=== PATIENT | male | born 1950 | race Caucasian/White ===

== ENCOUNTER → 2022-06-14 10:00 | Outpatient (CLI) | payer MEDICARE, OTHER, SELFPAY ==
--- NOTE | 2022-06-14 10:12 | DI.CT.S_ITS ---
PROCEDURE: CT IVP A/P W/WO INDICATIONS: Other microscopic hematuria TECHNIQUE: Optional 5 mm thick noncontrast images acquired from the diaphragm to the symphysis pubis. After the administration of intravenous contrast, 5 mm thick images acquired from the diaphragm to the symphysis pubis after a 10-minute delay. 2 mm thick coronal and sagittal reformats were then performed of the kidneys and ureters. For radiation dose reduction, the following was used: automated exposure control, adjustment of mA and/or kV according to patient size. COMPARISON: Merged With [facility], CT, CT KUB, 06/02/2022, 10:12. FINDINGS: Image quality: Excellent. Lung bases: Lung bases are clear. Heart size is normal. Small hiatal hernia. Urinary system: Both kidneys are normal in size, without hydronephrosis or nephrolithiasis on pre-contrast images. No perinephric fat stranding. There is normal bilateral renal enhancement. Small simple left renal cyst. Renal calyces appear normal in morphology when filled with contrast. Opacified portions of both ureters demonstrate normal caliber. No ureteral filling defect. The most distal right ureter does not opacify with contrast. Right posterior bladder wall in the region of the right ureteral orifice subtle increased density on the noncontrast images. On the post-contrast images there is an irregular frondlike appearance, (3/182). This measures approximately 3.3 cm in width. There is an adjacent bladder diverticulum which opacifies with contrast. No bladder stone. Other solid organs: Liver is normal in size and enhancement. Small hepatic cysts. Gallbladder is unremarkable. Biliary system is non dilated. Pancreas enhances normally. Spleen is normal in size and enhancement. No adrenal nodules. Peritoneum and bowel: Bowel loops demonstrate normal wall thickness and caliber. Diverticulosis. Normal appendix. No free fluid or air. Nodes and vessels: No retroperitoneal or mesenteric adenopathy by size criteria. Hazy mid abdomen mesentery is unchanged. Aorta and inferior vena cava are normal in size. Abdominal wall: No ventral hernias. Pelvis: No pathologic free pelvic fluid. Questionable fat containing right inguinal hernia. Right pelvic sidewall lymph node measuring 0.9 cm, (3/172). Prostatomegaly. Bones: No suspicious bony lesions. No vertebral body compression fractures. IMPRESSION: 1. Right bladder mass in the region of the right ureteral orifice. This is most likely due to urothelial cell carcinoma. Recommend cystoscopy for further evaluation. 2. Small right pelvic sidewall node measuring 0.9 cm. 3. No upper urinary tract filling defect. No hydronephrosis. No kidney stones. No solid renal mass. Dictated by: Rupesh Cummings M.D. on 06/14/2022 at 11:45 Approved by: Rupesh Cummings M.D. on 06/14/2022 at 12:02
[2022-06-14 10:49] LABS: BUN Creatinine Ratio 19.2 (6-22); Blood Urea Nitrogen 25 mg/dL (9-20); Estimated Glomerular Filt Rate 59 mL/min (>60)
== END ==
PROVIDERS: PCP Family Medicine; Referring Provider Urology; Visit Provider Urology
DX: N32.9 Bladder disorder, unspecified (principal); R31.29 Other microscopic hematuria; K76.89 Other specified diseases of liver; K44.9 Diaphragmatic hernia without obstruction or gangrene; N20.0 Calculus of kidney; N40.0 Benign prostatic hyperplasia without lower urinary tract symptoms
CPT/HCPCS: 36415; 74178; 82565; 84520; Q9967

== ENCOUNTER 2022-07-24 03:09 | Emergency (ER) | payer MEDICARE, OTHER, SELFPAY ==
--- NOTE | 2022-07-24 03:10 | ED_ITS ---
HPI - General Adult General Chief complaint: Urogenital-Male Stated complaint: bladder cramps, can't urinate, had surg saturday Time Seen by Provider: 07/24/22 03:09 History of Present Illness HPI narrative: 72-year-old nonsmoker with history of recent bladder procedure presents with his in the chief complaint severe lower abdominal pain and bladder spasms. He states that on Saturday he had resection of bladder masses at [facility] and had a Ponce catheter in until 930 yesterday morning. He had it removed without difficulty was observed for 4 hours and able to urinate without trouble. Over the course of the day he had a slowing of urine output and states he last urinated about 5 hours ago. He presents with severe pain at baseline with episodes of unprovoked spasm. He denies fever or chills. He is had no nausea or vomiting. He denies dysuria or hematuria. Related Data Previous Rx's Medication Instructions Recorded oxybutynin chloride 10 mg 10 mg PO DAILY #20 tabs 07/24/22 tablet,extended release 24 hr Allergies Allergy/AdvReac Type Severity Reaction Status Date / Time No Known Drug Allergies Allergy Verified 07/24/22 03:49 Review of Systems Review of Systems Narrative: GENERAL: Denies chills, fatigue, malaise, fever, sweats. HEENT: Denies sinus pain, ear pain, sore throat, difficulty swallowing, dizziness. RESPIRATORY: Denies dyspnea, cough, wheezing, hemoptysis, sputum. CARDIOVASCULAR: Denies chest pain, palpitations, orthopnea, edema, GASTROINTESTINAL: Denies nausea, vomiting, abdominal pain, diarrhea, constipation, melena. : See HPI MUSCULOSKELETAL: denies weakness, joint pain, or bony pain SKIN: Denies rash, skin lesions, or other NEUROLOGIC: Denies weakness, headache, numbness, change in speech, confusion, seizures, incoordination. PSYCHIATRIC: No concerning psychosocial issues. 12 point review of systems is negative except for those stated above Patient History Social History Smoking Status: Never smoker Exam Narrative Exam Narrative: GENERAL: [72] year old patient appears stated age. Well-developed patient, in severe distress. HEAD: Atraumatic. Normocephalic. EYES: Pupils equal round and reactive. Extraocular motions intact. No scleral icterus. No injection or drainage. ENT: Nose without bleeding, purulent drainage. Throat without erythema, tonsillar hypertrophy or exudate. Airway patent. NECK: Trachea midline. Non tender CARDIOVASCULAR: Regular rate and rhythm without murmurs, gallops, or rubs. RESPIRATORY: Clear to auscultation. Breath sounds equal bilaterally. No wheezes, rales, or rhonchi. GASTROINTESTINAL: Abdomen firm in the suprapubic region, bedside point of care ultrasound demonstrates significantly enlarged bladder EXTREMITIES: No edema or joint tenderness. BACK: Nontender without deformity or crepitance. No flank tenderness. NEURO: AOx3. SKIN: No rash or erythema of visible areas Initial Vital Signs Initial Vital Signs: Vital Signs Temperature 98.4 F 07/24/22 03:21 Pulse Rate 71 07/24/22 03:21 Respiratory Rate 22 07/24/22 03:21 Blood Pressure 221/91 H 07/24/22 03:21 Pulse Oximetry 100 07/24/22 03:21 Oxygen Delivery Method 07/24/22 03:21 Course Course Course Narrative: patient with near complete and immediate resolution of symptoms after placement of ponce by nursing Orders Ordered: ED Orders 07/24/22 03:38 Urine Culture Stat Urine Microscopic Stat 07/24/22 03:46 Urine Culture Stat Discontinued Medications Belladonna Alkaloids/Opium (Belladonna/Opium Suppositories) 1 each TX NOW ONE Stop: 07/24/22 03:29 Last Admin: 07/24/22 04:14 Dose: Not Given Lidocaine HCl (Lidocaine 2% (Glydo) 6 Ml Gel) 6 ml TOP NOW ONE Stop: 07/24/22 03:20 Last Admin: 07/24/22 04:13 Dose: 6 ml Consultations Consultation #1: discussed with consulting sales executive urology at [facility], recommends leaving ponce in place, adding oxybutinin, doubling flomax and close follow up Vital Signs Vital signs: Vital Signs - 8 hr 07/24/22 03:21 Temperature 98.4 F Pulse Rate 71 Respiratory Rate 22 Blood Pressure 221/91 H Pulse Oximetry 100 Oxygen Delivery Method Room Air Medical Decision Making Lab Data Labs: Lab Results 07/24/22 Range/Units 03:38 Urine RBC 30-100/hpf H (0-5/HPF) Urine WBC 1-5/hpf (0-5/HPF) Urine Bacteria None seen (None) Ur Culture Indicated? Specimen cultured Urine Dip Bedside Urine Glucose Negative Bedside Urine Bilirubin - Negative Bedside Urine Ketone - Negative Urine Specific [place] 1.015 Bedside Urine Occult Blood +++ Bedside Urine pH 6.5 Bedside Urine Protein + 30 Bedside Urine Urobilinogen +/- 1mg Bedside Urine Nitrite + Positive Bedside Urine Leukocytes +/- 15 Esterase Point of care testing: Urine Dip Bedside Urine Glucose Negative Bedside Urine Bilirubin - Negative Bedside Urine Ketone - Negative Urine Specific [place] 1.015 Bedside Urine Occult Blood +++ Bedside Urine pH 6.5 Bedside Urine Protein + 30 Bedside Urine Urobilinogen +/- 1mg Bedside Urine Nitrite + Positive Bedside Urine Leukocytes +/- 15 Esterase MDM Narrative Medical decision making narrative: [72M presents with his and inability to urinate after recent urologic procedure] Multiple etiologies for patient's symptoms considered including, but not limited to: [urinary retention vs. other] Prior Charts reviewed:non available Labs reviewed and interpreted by myself:no sign of UTI Imaging reviewed: bedside POC bladder scan notes full bladder after attempt to void Consultations: discussed with urology at [facility] Patient's symptoms improved over duration of stay with above-stated therapies. Findings and discharge diagnosis discussed with patient/family followed by verbalization of understanding Return precautions discussed with patient/family whom verbalize understanding of diagnosis and plan Discharge Plan Departure Patient Disposition: Home Clinical Impression: Acute retention of urine Instructions: DI for Urinary Retention in Men Activity Restrictions/Additional Instructions: *You have been diagnosed with [acute urinary retention ] *What to do: *Please increase your Tamsulosin (Flomax) to twice daily until you follow up with urology. Otherwise, please continue to take your regular medications as directed. [x ] New medication prescriptions sent to your pharmacy: [[facility] in [place] ] [ ] New medication written as a paper prescription [ ] No new medications given *Please follow up with your urologist in 2-3 days, call for an appointment. Let them know you were seen in the Emergency Department and that we ask that you be seen in follow up. We will electronically transmit a record of today's note *Return to Emergency Department if you should have any new, worsening or concerning symptoms, such as [fever greater than 101 F, shaking chills, worsening pain, persistent vomiting or other bothersome symptoms] Prescriptions: New oxybutynin chloride 10 mg tablet extended release 24hr 10 mg PO DAILY Qty: 20 0RF Referrals: Guero Saldivar MD [Primary Care Provider] - Sameer Crump DO [Non-Staff] - Stand Alone Forms: Patient Portal/API
[2022-07-24 03:21] VITALS: BP 221/91; PULSE 71; RESP 22; TEMP 36.9; O2SAT 100; BMI 25.0
[2022-07-24 04:08] LABS: Bacteria Urine None Seen; Culture Indicated Urine Specimen Cultured; RBC Urine 30-100/HPF (0-5/HPF); WBC Urine 1-5/HPF (0-5/HPF)
[2022-07-24] MEDS: LIDOCAINE 2% (GLYDO) 6 ML GEL TOP (04:13)
[2022-07-24 04:55] VITALS: BP 175/74; PULSE 53; RESP 18; O2SAT 98
== END 2022-07-24 04:56 | disposition home or self-care (01) ==
PROVIDERS: Emergency Provider Emergency Medicine; PCP Family Medicine
DX: R33.8 Other retention of urine (principal)
CPT/HCPCS: 81003; 81015; 87086; 99282

== ENCOUNTER → 2022-08-06 14:47 | Outpatient (CLI) | payer MEDICARE, OTHER, SELFPAY ==
--- NOTE | 2022-08-06 | DI.CT.S_ITS ---
PROCEDURE: CT CHEST WO CON INDICATIONS: BLADDER CANCER TECHNIQUE: Noncontrast 5 mm thick sections acquired from the pulmonary apices to the posterior costophrenic angles. 1 mm lung window, 5 mm thick coronal and sagittal and 7 mm axial MIP reformats were then acquired. For radiation dose reduction, the following was used: automated exposure control, adjustment of mA and/or kV according to patient size. COMPARISON: [facility], CT, CT IVP A/P W/WO, 06/14/2022, 10:19. FINDINGS: Image quality: Adequate Lungs and pleura: No consolidation or pleural effusion. 2 millimeter nodule at the left lung apex (3/66). Mediastinum: No pericardial effusion. Thoracic aorta and central pulmonary arteries are normal in size. Esophagus is normal in caliber. Multivessel coronary artery calcifications and/or stents. Bones and chest wall: Multilevel degenerative change of the visualized spine. No axillary or supraclavicular adenopathy by size criteria. Abdomen: Few small nonspecific hepatic hypodensities redemonstrated better visualized on the prior contrast enhanced examination. Visualized upper abdominal solid organs and bowel loops appear unremarkable in the absence of contrast. IMPRESSION: 1. A 2 millimeter nodule is present at the left lung apex, nonspecific. Attention to this finding on future follow up exams is recommended. 2. Otherwise, no definite findings suspicious for metastatic disease identified within the chest on this noncontrast exam. Dictated by: Kevin Camarillo M.D. on 08/07/2022 at 11:21 Approved by: Kevin Camarillo M.D. on 08/07/2022 at 11:33
== END ==
PROVIDERS: PCP Family Medicine; Referring Provider Urology; Visit Provider Urology
DX: N32.89 Other specified disorders of bladder (principal); R91.1 Solitary pulmonary nodule
CPT/HCPCS: 71250

== ENCOUNTER → 2022-09-05 14:49 | Outpatient (CLI) | payer MEDICARE, OTHER, SELFPAY ==
--- NOTE | 2022-09-05 | DI.CT.S_ITS ---
PROCEDURE: CT IVP A/P W/WO INDICATIONS: Malignant neoplasm of bladder TECHNIQUE: Optional 5 mm thick noncontrast images acquired from the diaphragm to the symphysis pubis. After the administration of intravenous contrast, 5 mm thick images acquired from the diaphragm to the symphysis pubis after a 10-minute delay. 2 mm thick coronal and sagittal reformats were then performed of the kidneys and ureters. For radiation dose reduction, the following was used: automated exposure control, adjustment of mA and/or kV according to patient size. COMPARISON: [facility], CT, CT IVP A/P W/WO, 06/14/2022, 10:19. FINDINGS: Image quality: Excellent. Lung bases: Lung bases are clear. Heart size is normal. Urinary system: Both kidneys are normal in size, without hydronephrosis. Question punctate nonobstructing left kidney stone. No perinephric fat stranding. There is normal bilateral renal enhancement. Renal calyces appear normal in morphology when filled with contrast. Opacified portions of both ureters demonstrate normal caliber. Near complete opacification. No calcified bladder stones. Thickening at the right bladder wall. Concern for slight worsening particularly at the superior margin, (5/44), although this could be related to differences and bladder distension. Right bladder diverticulum. Other solid organs: Liver is normal in size and enhancement. A few small cysts are unchanged. Gallbladder is decompressed. Biliary system is non dilated. Pancreas enhances normally. Spleen is normal in size and enhancement. Calcified splenic granuloma. No adrenal nodules. Peritoneum and bowel: Bowel loops demonstrate normal wall thickness and caliber. A few colonic diverticuli. Normal appendix. No free fluid or air. Nodes and vessels: No retroperitoneal or mesenteric adenopathy by size criteria. Sadaf mesentery is unchanged. Aorta and inferior vena cava are normal in size. Abdominal wall: No ventral hernias. Pelvis: Prostatomegaly. No pathologic free pelvic fluid. No inguinal hernias. Right pelvic sidewall node measuring 1.7 cm, (3/178), previously 0.9 cm. Bones: No suspicious bony lesions. No vertebral body compression fractures. IMPRESSION: 1. Bladder wall thickening is slightly worsened. Concern for enlarging bladder cancer. 2. Right pelvic sidewall lymph node is increased in size. 3. No new metastatic disease identified. No solid renal mass. No upper urinary tract filling defect. Dictated by: Rupesh Cummings M.D. on 09/05/2022 at 17:18 Approved by: Rupesh Cummings M.D. on 09/05/2022 at 17:28
[2022-09-05 15:42] LABS: Estimated Glomerular Filt Rate > 60 mL/min (>60)
== END ==
PROVIDERS: Radiology Diagnostic Radiology; PCP Family Medicine; Referring Provider Urology; Visit Provider Urology
DX: C67.9 Malignant neoplasm of bladder, unspecified (principal)
CPT/HCPCS: 36415; 74178; 82565; Q9967

== ENCOUNTER → 2022-10-16 10:08 | Outpatient (CLI) | payer MEDICARE, OTHER, SELFPAY ==
--- NOTE | 2022-10-16 | DI.US.S_ITS ---
PROCEDURE: US SOFT TISSUE HEAD AND NECK INDICATIONS: Disorder of the skin and subcutaneous tissue TECHNIQUE: Real-time scanning was performed of the neck region of interest, with image documentation. COMPARISON: None. FINDINGS: No mass or fluid collection at the area of interest. IMPRESSION: No sonographically evident mass or fluid collection at the area of interest. Clinical followup is recommended. If there is new or worsening clinical concern, reimaging with ultrasound or CT could be obtained. Dictated by: Patrick Rios M.D. on 10/16/2022 at 11:56 Approved by: Patrick Rios M.D. on 10/16/2022 at 11:57
== END ==
PROVIDERS: PCP Family Medicine; Referring Provider Nurse Practitioner Family; Visit Provider Nurse Practitioner Family
DX: L98.9 Disorder of the skin and subcutaneous tissue, unspecified (principal)
CPT/HCPCS: 76536

== ENCOUNTER → 2023-02-18 11:16 | Outpatient (CLI) | payer MEDICARE, OTHER, SELFPAY ==
--- NOTE | 2023-02-18 | DI.US.S_ITS ---
PROCEDURE: US RENAL COMPLETE INDICATIONS: MALIGNANT NEOSPLASM OF BLADDER, UNSPECIFIED TECHNIQUE: Real-time scanning was performed of the kidneys and bladder, with image documentation. COMPARISON: None. FINDINGS: Kidneys: Kidneys are normal in size. Right kidney measures 10.3 cm long; left kidney measures 11.3 cm long. Right renal cortical thickness is 1.8 cm; left renal cortical thickness is 2.0 cm. Renal cortical echotexture is normal. No hydronephrosis or nephrolithiasis. No suspicious solid mass lesions. There is a simple 2.1 cm left renal cyst. Bladder: The bladder is surgically absent. Miscellaneous: No free pelvic fluid. IMPRESSION: 1. No hydronephrosis. Left renal cyst. Dictated by: Dimple Jarrell M.D. on 02/18/2023 at 17:00 Approved by: Dimple Jarrell M.D. on 02/18/2023 at 17:01
== END ==
PROVIDERS: PCP Family Medicine; Referring Provider Nurse Practitioner Adult Health; Visit Provider Nurse Practitioner Adult Health
DX: C67.9 Malignant neoplasm of bladder, unspecified (principal); N28.1 Cyst of kidney, acquired
CPT/HCPCS: 76770

== ENCOUNTER → 2023-04-03 11:18 | Outpatient (CLI) | payer MEDICARE, OTHER, SELFPAY ==
[2023-04-03 12:20] LABS: Estimated Glomerular Filt Rate 54 mL/min (>60)
--- NOTE | 2023-04-03 12:55 | DI.CT.S_ITS ---
PROCEDURE: CT CHEST ABD PEL W CON INDICATIONS: Malignant neoplasm of bladder, unspecified TECHNIQUE: After the administration of oral and intravenous contrast, axial sections acquired from the supraclavicular neck to the pubic symphysis. Coronal and sagittal reformats were performed. For radiation dose reduction, the following was used: automated exposure control, adjustment of mA and/or kV according to patient size. COMPARISON: [facility], CT, CT IVP A/P W/WO, 09/05/2022, 15:46. [facility], CT, CT CHEST WO CON, 08/06/2022, 15:01. FINDINGS: Image quality: Good Lungs and pleura: Scattered scarring. No consolidation or pleural effusion. No new or enlarging pulmonary nodule. Mediastinum, heart, and esophagus: There is nonspecific mild esophageal wall thickening, also seen previously. Heart size is within normal limits. A right port catheter terminates in the lower SVC. There are coronary and annular calcifications of the heart. No pathologic lymph nodes in the mediastinum or gina by size criteria. Chest wall and thyroid: Unremarkable Solid organs: There are liver cysts. Subcentimeter lesions are too small to characterize, probably also cysts, as they are stable. Gallbladder is unremarkable. No pathologic dilation of the biliary system or pancreatic duct. Prominent size spleen measuring 12 13 cm. No adrenal nodules. Left renal cyst is present. Right lower quadrant urinary diversion with a small parastomal hernia. Mild bilateral pelviectasis. Vessels and lymph nodes: The main portal vein is patent. No abdominal aortic aneurysm. There are pelvic dissection clips. Previously noted right external iliac station node is not seen. Small fluid collections are seen at the pelvic sidewalls, probably postoperative seroma/lymphoceles. Bowel and peritoneum: Mildly distended stomach. No evidence of small bowel obstruction. 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 Moderate to large fecal loading. Body wall: Small fat containing left inguinal hernia. Abdominal wall postsurgical changes. Tiny midline fat containing ventral hernia also present. Pelvis: Cystectomy. Prostatectomy. Mild edema is seen in the pelvis at the surgical sites. No discrete enhancing nodule is identified. Bones: Degenerative changes, no acute or suspicious finding. IMPRESSION: Postoperative changes of cystectomy, prostatectomy, and pelvic node dissection. Suspected pelvic postoperative edema and pelvic sidewall seroma/lymphoceles. No definite enhancing nodule. Close attention on follow-up is suggested. No evidence of distant metastatic disease. Other findings as above. Dictated by: Patrick Rios M.D. on 04/03/2023 at 14:41 Approved by: Patrick Rios M.D. on 04/03/2023 at 14:50
== END ==
PROVIDERS: Radiology Diagnostic Radiology; PCP Family Medicine; Referring Provider Nurse Practitioner Adult Health; Visit Provider Nurse Practitioner Adult Health
DX: C67.9 Malignant neoplasm of bladder, unspecified (principal); C79.11 Secondary malignant neoplasm of bladder; Z90.6 Acquired absence of other parts of urinary tract; N41.2 Abscess of prostate
CPT/HCPCS: 36415; 71260; 74177; 82565

== ENCOUNTER → 2023-06-28 08:54 | Outpatient (CLI) | payer MEDICARE, OTHER, SELFPAY ==
[2023-06-28 09:30] LABS: Estimated Glomerular Filt Rate 47 mL/min (>60)
--- NOTE | 2023-06-28 09:52 | DI.CT.S_ITS ---
PROCEDURE: CT CHEST ABD PEL W CON INDICATIONS: Malignant neoplasm of bladder, unspecified TECHNIQUE: After the administration of intravenous contrast, 5 mm thick sections acquired from the lung apices to the symphysis. 5 mm coronal and sagittal reformats were performed, with additional 7 mm MIP reformats through the lungs. For radiation dose reduction, the following was used: automated exposure control, adjustment of mA and/or kV according to patient size. COMPARISON: [facility], CT, CT CHEST ABD PEL W CON, 04/03/2023, 12:48. FINDINGS: Image quality: Excellent. CHEST: Lower Neck: No enlarged lymph nodes. Thyroid: Normal CT appearance. Axillae: No enlarged lymph nodes. Chest Wall: Right chest MediPort. Lungs and Pleura: No pneumothorax or pleural effusions. No consolidation or suspicious nodules. Central and peripheral airways are normal without bronchial wall thickening or bronchiectasis. Heart: Heart size at the upper limits of normal. Moderate to heavy coronary artery calcification. Aortic valvular calcification. No pericardial effusion. Thoracic Vessels: The aorta and pulmonary arteries demonstrate normal size. Mediastinum and [place]iana: No enlarged lymph nodes. Esophagus: No wall thickening. No hiatal hernia. ABDOMEN: Liver: Several hepatic hypodensities, likely cysts. The largest measures 1.5 cm, stable. No new solid mass. Gallbladder: Normal. Biliary ducts: No biliary dilation. Pancreas: No ductal dilation. Spleen: Size is within normal limits. Coarse upper pole calcification. Adrenal Glands: No nodules. Kidneys and Ureters: Symmetric enhancement. Punctate nonobstructing left lower pole calcification. No hydronephrosis. No hydroureter or ureteral calcifications. Right lower quadrant ureteral anastomosis into an ileal conduit. Upper pole left renal cyst. Stomach and Bowel: There is a right lower quadrant small bowel anastomosis following creation of right lower quadrant ureterostomy with ileal loop. There is a normal appendix and normal loops of colon containing mildly increased quantity of stool. Mild moderate length segment wall thickening of the proximal descending colon without surrounding inflammatory changes, nonspecific. Peritoneum: No abnormal intraperitoneal fluid. No free air. Ventral Wall: No hernia. Right lower quadrant urostomy. Abdominal Nodes: No retroperitoneal or mesenteric adenopathy by size criteria. Vessels: Aorta and inferior vena cava are normal in size. Mild abdominal aortic atherosclerotic calcification. PELVIS: Pelvic Organs: The prostate gland is surgically absent. Bladder: Surgically absent. Pelvic Nodes: No enlarged lymph nodes. Miscellaneous: Several surgical clips present in the pelvis. Interval resolution previously seen small pelvic sidewall fluid collections with trace residual fascial thickening more evident on the left than right. No suspicious soft tissue nodule. Bones: No suspicious bone lesions. Degenerative disc disease in the low lumbar spine. IMPRESSION: 1. Prior prostatectomy, cystectomy, and urinary diversion without evidence of residual or recurrent disease. 2. No evidence of new metastatic disease in the chest, abdomen, or pelvis. 3. Incidental findings as described. Dictated by: Matilda Rios M.D. on 06/28/2023 at 14:53 Approved by: Matilda Rios M.D. on 06/28/2023 at 15:09
== END ==
LOC: CT 08:55
PROVIDERS: Radiology Diagnostic Radiology; PCP Family Medicine; Referring Provider Urology; Visit Provider Urology
DX: C67.9 Malignant neoplasm of bladder, unspecified (principal); I70.0 Atherosclerosis of aorta; Z90.79 Acquired absence of other genital organ(s); Z98.0 Intestinal bypass and anastomosis status; Z90.6 Acquired absence of other parts of urinary tract; Z93.6 Other artificial openings of urinary tract status
CPT/HCPCS: 36415; 71260; 74177; 82565; Q9967

== ENCOUNTER → 2023-10-01 08:48 | Outpatient (CLI) | payer MEDICARE, OTHER, SELFPAY ==
[2023-10-01 09:39] LABS: Estimated Glomerular Filt Rate 52 mL/min (>60)
--- NOTE | 2023-10-01 10:17 | DI.CT.S_ITS ---
This report includes an Addendum and supersedes previous reports for this exam. PROCEDURE: CT CHEST ABD PEL W CON INDICATIONS: Malignant neoplasm of bladder, unspecified TECHNIQUE: After the administration of intravenous contrast, 5 mm thick sections acquired from the lung apices to the symphysis. 5 mm coronal and sagittal reformats were performed, with additional 7 mm MIP reformats through the lungs. For radiation dose reduction, the following was used: automated exposure control, adjustment of mA and/or kV according to patient size. COMPARISON: [facility], CT, CT CHEST ABD PEL W CON, 06/28/2023, 10:03. [facility], CT, CT CHEST ABD PEL W CON, 04/03/2023, 12:48. FINDINGS: Image quality: Excellent. CHEST: Lower Neck: No enlarged lymph nodes. Thyroid: No thyroid nodules which require sonographic follow up, per consensus guidelines. Axillae: No enlarged lymph nodes. Chest Wall: Unremarkable. Lungs and Pleura: No pneumothorax or pleural effusions. No consolidation or suspicious nodules. Heart: Heart size is normal. Moderate coronary artery calcifications. No pericardial effusion. Thoracic Vessels: The aorta and pulmonary arteries demonstrate normal size. Mediastinum and Eliana: No enlarged lymph nodes. Esophagus: No wall thickening. No hiatal hernia. ABDOMEN: Liver: No solid mass. Gallbladder: No radiopaque gallstones or wall thickening. Biliary ducts: No biliary dilation. Pancreas: No ductal dilation. Spleen: Size is within normal limits. Adrenal Glands: No adrenal nodules. Kidneys and Ureters: No hydronephrosis. No solid mass. No complex renal cystic lesion which requires follow up. Ureters are nondilated connecting to an ileal conduit with a left lower abdominal stoma site. Stomach and Bowel: Normal colonic caliber, without significant wall thickening. There is an area of proximal sigmoid which is narrowed on images 112-116 of series 2. It is possible that this might potentially represent a very subtle area of colonic malignancy. There was somewhat similar narrowing in this location on the previous study. Peritoneum: No abnormal intraperitoneal fluid. No free air. Ventral Wall: No significant ventral hernia. Abdominal Nodes: No retroperitoneal or mesenteric adenopathy by size criteria. Vessels: Aorta and inferior vena cava are normal in size. PELVIS: Pelvic Organs: Bladder and prostate have been resected.. Bladder: No bladder wall thickening, accounting for underdistention. Pelvic Nodes: No enlarged lymph nodes. Resolving pelvic sidewall lymphoceles. Radical prostatectomy lymph node resection clips. Miscellaneous: Small fat containing left inguinal hernia. Bones: No aggressive osseous abnormality. IMPRESSION: 1. Expected findings post resection of the bladder and prostate. No local disease recurrence. 2. No metastatic disease in the chest, abdomen and pelvis noted. 3. Question very subtle lesion of the proximal sigmoid. Question subtle primary colonic lesion. Comment: Recommend colonoscopy for direct visualization of the sigmoid if this has not been done in the recent past. Comment: We are attempting to notify referring clinician's office of an unexpected potential finding at this time. Dictated by: Matteo Gabriel M.D. on 10/01/2023 at 13:36 Approved by: Matteo Gabriel M.D. on 10/01/2023 at 13:51 ADDENDUM: Recommendation for colonoscopy was discussed with Jessenia Dueñas, a nurse working with the referring urologist, on 10/01/23 at 1418 hours PDT. Dictated by: Matteo Gabriel M.D. on 10/01/2023 at 14:26 Approved by: Matteo Gabriel M.D. on 10/01/2023 at 14:26
== END ==
PROVIDERS: Radiology Diagnostic Radiology; PCP Family Medicine; Referring Provider Urology; Visit Provider Urology
DX: C67.9 Malignant neoplasm of bladder, unspecified (principal); I25.10 Atherosclerotic heart disease of native coronary artery without angina pectoris; K40.90 Unilateral inguinal hernia, without obstruction or gangrene, not specified as recurrent
CPT/HCPCS: 36415; 71260; 74177; 82565; Q9967

== ENCOUNTER → 2024-01-14 11:10 | Outpatient (CLI) | payer MEDICARE, OTHER, SELFPAY ==
--- NOTE | 2024-01-14 11:12 | DI.CT.S_ITS ---
PROCEDURE: CT CHEST WO CON INDICATIONS: malignant leoplasm of bladdewr TECHNIQUE: Noncontrast 5 mm thick sections acquired from the pulmonary apices to the posterior costophrenic angles. 1 mm lung window, 5 mm thick coronal and sagittal and 7 mm axial MIP reformats were then acquired. For radiation dose reduction, the following was used: automated exposure control, adjustment of mA and/or kV according to patient size. COMPARISON: [facility], CT, CT IVP A/P W/WO, 01/14/2024, 11:55. [facility], CT, CT CHEST ABD PEL W CON, 10/01/2023, 10:13. [facility], CT, CT CHEST WO CON, 08/06/2022, 15:01. FINDINGS: Image quality: Diagnostic. Lower Neck: No enlarged lymph nodes. Thyroid: No thyroid nodules which require sonographic follow up, per consensus guidelines. Axillae: No enlarged lymph nodes. Chest Wall: Unremarkable. Right chest Port-A-Cath, the tip which extends to the SVC right atrial junction. Bones: Unremarkable. Lungs and Pleura: No pneumothorax or pleural effusions. No consolidation or suspicious nodules. Heart: Heart size is normal. No pericardial effusion. Moderate to severe coronary artery calcifications. Thoracic Vessels: The aorta and pulmonary arteries demonstrate normal size. Mediastinum and Eliana: No enlarged lymph nodes. Esophagus: No wall thickening. No hiatal hernia. Upper Abdomen: Visualized upper abdomen solid organs and bowel loops appear normal. IMPRESSION: 1. No evidence of metastatic disease in the chest. 2. Moderate to severe coronary artery calcifications. Dictated by: Matteo Gabriel M.D. on 01/14/2024 at 16:33 Approved by: Matteo Gabriel M.D. on 01/14/2024 at 16:40
[2024-01-14 11:42] LABS: Estimated Glomerular Filt Rate 44 mL/min (>60)
--- NOTE | 2024-01-14 13:00 | DI.CT.S_ITS ---
PROCEDURE: CT IVP A/P W/WO INDICATIONS: malignant leoplasm of bladdewr TECHNIQUE: Optional 5 mm thick noncontrast images acquired from the diaphragm to the symphysis pubis. After the administration of intravenous contrast, 5 mm thick images acquired from the diaphragm to the symphysis pubis after a 10-minute delay. 2 mm thick coronal and sagittal reformats were then performed of the kidneys and ureters. For radiation dose reduction, the following was used: automated exposure control, adjustment of mA and/or kV according to patient size. COMPARISON: [facility], CT, CT CHEST ABD PEL W CON, 10/01/2023, 10:13. [facility], CT, CT IVP A/P W/WO, 09/05/2022, 15:46. FINDINGS: Image quality: Diagnostic. Kidneys and Ureters: Both kidneys are normal in size, without hydronephrosis or nephrolithiasis. No perinephric fat stranding. There is normal bilateral renal enhancement. Renal calyces appear normal in morphology when filled with contrast. Opacified portions of both ureters demonstrate normal caliber. They connect to an ileal conduit with a right lower abdominal ostomy site. Bladder: Surgically absent. Ileal conduit. Right lower quadrant ostomy. OTHER: Lower chest: Unremarkable. Liver: No solid mass. Gallbladder: No radiopaque gallstones or wall thickening. Biliary ducts: No biliary dilation. Pancreas: No ductal dilation. Spleen: Size is within normal limits. Adrenal Glands: No adrenal nodules. Stomach and Bowel: Again noted are subtle changes of diffuse wall thickening involving the proximal sigmoid, in the same location as previous. Reference axial images 118 through 145 of series 4. Peritoneum: No abnormal intraperitoneal fluid. No free air. Ventral Wall: No hernia. Abdominal Nodes: No retroperitoneal or mesenteric adenopathy by size criteria. Vessels: Aorta and inferior vena cava are normal in size. PELVIS: Pelvic Organs: Remote cystectomy and radical prostatectomy with lymph node resection.. Pelvic Nodes: No enlarged lymph nodes. Miscellaneous: No inguinal hernias are seen. Bones: No aggressive osseous abnormality. Lumbar degenerative change. IMPRESSION: 1. Remote cystectomy and prostatectomy and ileal conduit procedure. 2. No evidence of malignancy involving the tract. No stones. No hydronephrosis. 3. Subtle changes of diffuse wall thickening involving the proximal sigmoid. It is noted that findings were discussed with the nurse working with this referring clinician on 10/01/2023, per prior report. Again, recommend colonoscopy if relatively recent colonoscopy has not been performed. 4. No metastatic disease noted. Dictated by: Matteo Gabriel M.D. on 01/14/2024 at 16:40 Approved by: Matteo Gabriel M.D. on 01/14/2024 at 16:49
== END ==
PROVIDERS: Radiology Diagnostic Radiology; PCP Family Medicine; Referring Provider Urology; Visit Provider Urology
DX: I25.10 Atherosclerotic heart disease of native coronary artery without angina pectoris (principal); C67.9 Malignant neoplasm of bladder, unspecified; M47.816 Spondylosis without myelopathy or radiculopathy, lumbar region; Z93.6 Other artificial openings of urinary tract status; Z95.828 Presence of other vascular implants and grafts; Z90.6 Acquired absence of other parts of urinary tract
CPT/HCPCS: 36415; 71250; 74178; 82565; Q9967

== ENCOUNTER → 2024-03-23 09:24 | Outpatient (CLI) | payer MEDICARE, OTHER, SELFPAY ==
--- NOTE | 2024-03-23 | DI.CT.S_ITS ---
PROCEDURE: CT IVP A/P W/WO INDICATIONS: Malignant neoplasm of overlapping sites of bladder TECHNIQUE: Optional 5 mm thick noncontrast images acquired from the diaphragm to the symphysis pubis. After the administration of intravenous contrast, 5 mm thick images acquired from the diaphragm to the symphysis pubis after a 10-minute delay. 2 mm thick coronal and sagittal reformats were then performed of the kidneys and ureters. For radiation dose reduction, the following was used: automated exposure control, adjustment of mA and/or kV according to patient size. COMPARISON: [facility], CT, CT IVP A/P W/WO, 01/14/2024, 11:55. FINDINGS: Image quality: Diagnostic. Kidneys and Ureters: 2 mm nonobstructing stone mid left kidney (series 2, image 34) and a smaller punctate nonobstructing stone lower pole left kidney (2, 40). No other renal or ureteral calculi. No evidence of hydronephrosis. No solid renal mass lesion. No urothelial abnormality. Postsurgical changes from prior cystoprostatectomy with ileal conduit in place in the right lower quadrant. Bladder: Status post cystoprostatectomy. OTHER: Lower chest: Unremarkable. Liver: Stable size of several scattered low-density lesions throughout the liver, largest measuring 1.3 cm within segment 6 of the liver and most likely cysts. No solid renal mass. Gallbladder: No radiopaque gallstones or wall thickening. Biliary ducts: No biliary dilation. Pancreas: No ductal dilation. Spleen: Size is within normal limits. Tiny calcified granuloma near the dome of the spleen. Adrenal Glands: No adrenal nodules. Stomach and Bowel: Small large bowel appear normal in caliber without evidence of bowel obstruction. Diverticulosis of the sigmoid colon without evidence of diverticulitis. Peritoneum: Stable appearing mild degree of soft tissue thickening involving the small bowel mesentery. No peritoneal masses. Ventral Wall: Tiny umbilical hernia containing fat. Right lower quadrant ileostomy in place. Abdominal Nodes: No retroperitoneal or mesenteric adenopathy by size criteria. PELVIS: Pelvic Organs: Unremarkable. Pelvic Nodes: No enlarged lymph nodes. Miscellaneous: Small left inguinal hernia containing fat. Bones: No aggressive osseous abnormality. IMPRESSION: 1. Tiny nonobstructing stones mid to lower left kidney. No evidence of hydronephrosis. No solid renal mass or urothelial abnormality. 2. 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 3. Changes from prior cystoprostatectomy with right lower quadrant ileal conduit in place without evidence of recurrent or metastatic disease within the abdomen or pelvis. Dictated by: Gvain Pardo M.D. on 03/23/2024 at 11:51 Approved by: Gavin Pardo M.D. on 03/23/2024 at 12:04
--- NOTE | 2024-03-23 | DI.CT.S_ITS ---
PROCEDURE: CT CHEST WO CON INDICATIONS: Malignant neoplasm of overlapping sites of bladder TECHNIQUE: Noncontrast 5 mm thick sections acquired from the pulmonary apices to the posterior costophrenic angles. 1 mm lung window, 5 mm thick coronal and sagittal and 7 mm axial MIP reformats were then acquired. For radiation dose reduction, the following was used: automated exposure control, adjustment of mA and/or kV according to patient size. COMPARISON: [facility], CT, CT CHEST WO CON, 01/14/2024, 11:55. FINDINGS: Image quality: Diagnostic. Lungs and Pleura: No new or suspicious pulmonary nodules or masses. Focal area of subpleural thickening along the anteromedial right lower lobe abutting the major fissure appears unchanged most likely related to scarring. No focal airspace opacity or consolidation. No evidence of pneumothorax or significant pleural effusion. Lower Neck: No enlarged lymph nodes. Thyroid: No thyroid nodules which require sonographic follow up, per consensus guidelines. Axillae: No enlarged lymph nodes. Chest Wall: Unremarkable. Bones: Unremarkable. Heart: Heart size is normal. No pericardial effusion. Interval removal of right-sided chest port catheter. Moderate coronary artery calcifications. Thoracic Vessels: The aorta and pulmonary arteries demonstrate normal size. Mediastinum and Eliana: No enlarged lymph nodes. Esophagus: No wall thickening. No hiatal hernia. Upper Abdomen: Partially imaged hypodense lesion within the posterior right hepatic lobe appears unchanged possibly cyst versus hemangioma. IMPRESSION: No evidence of metastatic disease within the chest. Dictated by: Gavin Pardo M.D. on 03/23/2024 at 11:39 Approved by: Gavin Pardo M.D. on 03/23/2024 at 11:50
[2024-03-23 09:53] LABS: Estimated Glomerular Filt Rate 50 mL/min (>60)
== END ==
PROVIDERS: Radiology Diagnostic Radiology; PCP Family Medicine; Referring Provider Urology; Visit Provider Urology
DX: C67.8 Malignant neoplasm of overlapping sites of bladder (principal); C77.9 Secondary and unspecified malignant neoplasm of lymph node, unspecified; K57.30 Diverticulosis of large intestine without perforation or abscess without bleeding; K40.90 Unilateral inguinal hernia, without obstruction or gangrene, not specified as recurrent; Z93.6 Other artificial openings of urinary tract status; Z90.6 Acquired absence of other parts of urinary tract; Z90.79 Acquired absence of other genital organ(s); Z93.2 Ileostomy status
CPT/HCPCS: 36415; 71250; 74178; 82565; Q9967

== ENCOUNTER → 2024-07-14 10:33 | Outpatient (CLI) | payer MEDICARE, OTHER, SELFPAY ==
--- NOTE | 2024-07-14 10:35 | DI.CT.S_ITS ---
PROCEDURE: CT CHEST WO CON INDICATIONS: prostate cancer TECHNIQUE: Noncontrast 5 mm thick sections acquired from the pulmonary apices to the posterior costophrenic angles. 1 mm lung window, 5 mm thick coronal and sagittal and 7 mm axial MIP reformats were then acquired. For radiation dose reduction, the following was used: automated exposure control, adjustment of mA and/or kV according to patient size. COMPARISON: [facility], CT, CT CHEST WO CON, 03/23/2024, 9:58. FINDINGS: Image quality: Diagnostic. Lower Neck: No enlarged lymph nodes. Thyroid: No thyroid nodules which require sonographic follow up, per consensus guidelines. Axillae: No enlarged lymph nodes. Chest Wall: Unremarkable. Bones: Unremarkable. Lungs and Pleura: No pneumothorax or pleural effusions. No consolidation or suspicious nodules. Heart: Heart size is enlarged, with three-vessel coronary artery calcifications. No pericardial effusion. Thoracic Vessels: The aorta and pulmonary arteries demonstrate normal size. Mediastinum and Eliana: No enlarged lymph nodes. Esophagus: No wall thickening. No hiatal hernia. Upper Abdomen: Separately dictated. IMPRESSION: No evidence of metastatic disease in the chest. Marked coronary artery calcifications for age. Correlate with risk factors and advise counseling. Dictated by: Robb Paige M.D. on 07/14/2024 at 15:36 Approved by: Robb Paige M.D. on 07/14/2024 at 15:38
--- NOTE | 2024-07-14 10:37 | DI.CT.S_ITS ---
PROCEDURE: CT ABDOMEN PELVIS WO/W CON INDICATIONS: prostate cancer TECHNIQUE: Optional 5 mm thick noncontrast images acquired from the diaphragm to the symphysis pubis. After the administration of intravenous contrast, 5 mm thick images acquired from the diaphragm to the symphysis pubis after a 10-minute delay. 2 mm thick coronal and sagittal reformats were then performed of the kidneys and ureters. For radiation dose reduction, the following was used: automated exposure control, adjustment of mA and/or kV according to patient size. COMPARISON: [facility], CT, CT IVP A/P W/WO, 03/23/2024, 9:58. FINDINGS: Image quality: Diagnostic. Kidneys and Ureters: Both kidneys are normal in size, without hydronephrosis. A couple of punctate, nonobstructing left-sided nephrolithiasis. No perinephric fat stranding. There is normal bilateral renal enhancement. Renal calyces appear normal in morphology when filled with contrast. Opacified portions of both ureters demonstrate normal caliber Bladder: Cystoprostatectomy OTHER: Lower chest: Unremarkable. Liver: No solid mass. Scattered subcentimeter hypoattenuating lesions, too small to characterize by CT but probably small cysts. Gallbladder: No radiopaque gallstones or wall thickening. Biliary ducts: No biliary dilation. Pancreas: No ductal dilation. Spleen: Size is within normal limits. Adrenal Glands: No adrenal nodules. Stomach and Bowel: Normal colonic caliber, without significant wall thickening. Colonic diverticulosis without evidence of diverticulitis. Peritoneum: No abnormal intraperitoneal fluid. No free air. Central mesenteric fat stranding without adenopathy, likely indicating a benign process. Ventral Wall: No hernia. Abdominal Nodes: No retroperitoneal or mesenteric adenopathy by size criteria. Vessels: Aorta and inferior vena cava are normal in size. PELVIS: Pelvic Organs: Cystoprostatectomy Pelvic Nodes: No enlarged lymph nodes. Miscellaneous: Small left inguinal hernia containing fat. Bones: No aggressive osseous abnormality. IMPRESSION: Cyst prostatectomy, without measurable disease. Right lower quadrant ileal conduit. A couple of punctate, nonobstructing left-sided nephrolithiasis. Dictated by: Robb Paige M.D. on 07/14/2024 at 15:40 Approved by: Robb Paige M.D. on 07/14/2024 at 15:57
[2024-07-14 11:13] LABS: Estimated Glomerular Filt Rate 44 mL/min (>60)
== END ==
PROVIDERS: Radiology Diagnostic Radiology; PCP Family Medicine; Referring Provider Urology; Visit Provider Urology
DX: C67.8 Malignant neoplasm of overlapping sites of bladder (principal); C77.9 Secondary and unspecified malignant neoplasm of lymph node, unspecified; C61 Malignant neoplasm of prostate; N20.0 Calculus of kidney; I51.7 Cardiomegaly; I25.10 Atherosclerotic heart disease of native coronary artery without angina pectoris; K40.90 Unilateral inguinal hernia, without obstruction or gangrene, not specified as recurrent; Z93.6 Other artificial openings of urinary tract status; Z90.79 Acquired absence of other genital organ(s); Z90.6 Acquired absence of other parts of urinary tract
CPT/HCPCS: 36415; 71250; 74178; 82565; Q9967

== ENCOUNTER → 2024-10-22 07:41 | Outpatient (CLI) | payer MEDICARE, OTHER, SELFPAY ==
--- NOTE | 2024-10-22 07:44 | DI.ECHO.S_ITS ---
[facility] : : [id number] : [place] : : [id number] : : Phone: [phone] Echocardiogram Report + + :Name: FATIMAH JAUREGUI Study Date: 10/22/2024 Height: 72 in : :Hospital ReadingLocation: Weight: 185 lb : : Gender: Male BSA: 2.1 m2 : :: 1950 Age: 74 yrs BP: 147/76 mmHg: :Reason For Study: CAD : :Ordering Physician: JULISSA, : :LUCY Osei Performed By: Nelson Hyatt : :Referring: LUCY COSTA : + + Interpretation Summary 1) Normal left ventricular thickness, size, wall motion, and systolic function (EF 55-60%). 2) Normal right ventricular size and function. 3) There is mild to moderate mitral regurgitation. 4) There is mild aortic stenosis (valve area 1.9cm2, mean gradient 8mmHg, severity ratio 0.46). 5) No prior Echo available for comparison. Procedure: A two-dimensional transthoracic echocardiogram with color flow and Doppler was performed. The study quality was technically good. There is no prior echocardiogram noted for this patient. The patient was in normal sinus rhythm during the exam. Left Ventricle: The left ventricle is normal in size. There is normal left ventricular wall thickness. There is no ventricular septal defect visualized. The ejection fraction is estimated to be 55-60%. There are no focal wall motion abnormalities. Diastolic parameters suggest a relaxation abnormality of the left ventricle, consistent with probable normal filling pressures. Right Ventricle: The right ventricle is normal in size and function. Atria: The left atrial size is normal. The right atrium is moderately dilated. There is no Doppler evidence for an interatrial shunt. Mitral Valve: The mitral valve leaflets appear mildly thickened, but open well. There is mild to moderate mitral regurgitation. Aortic Valve: The aortic valve is trileaflet. The aortic valve is mildly calcified. There is mild aortic stenosis. There is mild aortic regurgitation. Tricuspid Valve: The tricuspid valve is normal in structure and function. There is mild tricuspid regurgitation. The right ventricular systolic pressure is estimated to be at least 28 mmHg based on an estimated right atrial pressure of 3 mm Hg. Pulmonic Valve: The pulmonic valve leaflets are thin and pliable; valve motion is normal. There is no pulmonic valvular regurgitation. Great Vessels: The aortic root is normal size. The ascending aorta is normal in size. The pulmonary artery is normal size. The IVC is of normal diameter and collapses greater than 50% with a sniff. This suggests a low right atrial pressure of 3 mm Hg. Pericardium/ Pleura There is no pericardial effusion. There is no pleural effusion. MMode/2D Measurements & Calculations LVIDd: 4.8 cm LVOT diam: 2.3 cm LVIDs: 2.9 cm Ao root diam: 3.4 cm FS: 39.2 % EPSS: 0.58 cm IVSd: 0.91 cm LVPWd: 0.90 cm LV rosa. diameter/BSA (cm/m^2): 2.3 LV sys. diameter/BSA (cm/m^2): 1.4 LA A2 area: 19.5 cm2 RA long axis: 5.9 cm LA A4 area: 15.1 cm2 RA area: 24.9 cm2 LA length (vol): 4.9 cm RA vol: 89.6 ml LA vol: 50.7 ml RA : 43.5 ml/m2 LA vol index: 24.6 ml/m2 IVC diam: 1.4 cm RVD1 (basal): 3.7 cm RVD2 (mid): 3.0 cm TAPSE: 3.5 cm Doppler Measurements & Calculations Ao V2 max: 188.5 cm/sec LVOT Max Jimbo: 106.6 cm/sec Ao V2 mean: 135.8 cm/sec LV V1 max P.5 mmHg Ao max P.2 mmHg LV V1 VTI: 21.3 cm Ao mean P.2 mmHg DELILAH(I,D): 1.9 cm2 Ao V2 VTI: 46.5 cm DELILAH(V,D): 2.3 cm2 sev ratio: 0.46 DELILAH indexed to BSA (cm^2/m^2): 0.91 MV E max jimbo: 80.5 cm/sec TR max jimbo: 247.9 cm/sec MV A max jimbo: 93.7 cm/sec TR max P.6 mmHg MV E/A: 0.86 PA V2 max: 105.6 cm/sec Med Peak E' Jimbo: 7.8 cm/sec PA V2 mean: 70.6 cm/sec E/E' med: 10.3 PA mean P.2 mmHg Lat Peak E' Jimbo: 8.7 cm/sec PA pr(Accel): 34.5 mmHg E/E' lat: 9.3 E/e' average: 9.8 MV dec time: 0.27 sec MR ERO: 0.12 cm2 MR PISA: 1.8 cm2 SV(LVOT): 87.2 ml MR flow rate: 65.7 cm3/sec MR PISA radius: 0.53 cm Reading Physician:05:31 PM
== END ==
PROVIDERS: PCP Family Medicine; Referring Provider Internal Medicine Cardiovascular Disease; Visit Provider Internal Medicine Cardiovascular Disease
DX: I08.3 Combined rheumatic disorders of mitral, aortic and tricuspid valves (principal); I25.10 Atherosclerotic heart disease of native coronary artery without angina pectoris; E78.5 Hyperlipidemia, unspecified
CPT/HCPCS: 93306

== ENCOUNTER → 2024-10-22 07:44 | Outpatient (CLI) | payer MEDICARE, OTHER, SELFPAY ==
--- NOTE | 2024-10-22 07:46 | DI.CT.S_ITS ---
PROCEDURE: CT CHEST WO CON INDICATIONS: BLADDER CANCER TECHNIQUE: Noncontrast 5 mm thick sections acquired from the pulmonary apices to the posterior costophrenic angles. 1 mm lung window, 5 mm thick coronal and sagittal and 7 mm axial MIP reformats were then acquired. For radiation dose reduction, the following was used: automated exposure control, adjustment of mA and/or kV according to patient size. COMPARISON: [facility], CT, CT ABDOMEN PELVIS WO/W CON, 07/14/2024, 11:20. [facility], CT, CT CHEST WO CON, 07/14/2024, 11:20. FINDINGS: Image quality: Diagnostic. Lower Neck: No enlarged lymph nodes. Thyroid: No thyroid nodules which require sonographic follow up, per consensus guidelines. Axillae: No enlarged lymph nodes. Chest Wall: Unremarkable. Bones: Unremarkable. Lungs and Pleura: No pneumothorax or pleural effusions. Mild biapical scarring. Heart: Heart size is normal. No pericardial effusion. Three-vessel coronary artery calcifications. Thoracic Vessels: The aorta and pulmonary arteries demonstrate normal size. Mediastinum and Eliana: No enlarged lymph nodes. Esophagus: No wall thickening. No hiatal hernia. Upper Abdomen: Separately dictated. IMPRESSION: No measurable disease. Marked coronary artery calcifications for age. Correlate with risk factors and advise counseling. Dictated by: Robb Paige M.D. on 10/23/2024 at 14:21 Approved by: Robb Paige M.D. on 10/23/2024 at 14:24
--- NOTE | 2024-10-22 07:46 | DI.CT.S_ITS ---
PROCEDURE: CT ABDOMEN PELVIS W CON INDICATIONS: BLADDER CANCER TECHNIQUE: After the administration of intravenous contrast, axial sections acquired from the lung bases to the pubic symphysis. Coronal and sagittal reformats were performed. For radiation dose reduction, the following was used: automated exposure control, adjustment of mA and/or kV according to patient size. COMPARISON: None. FINDINGS: Image quality: Diagnostic. Lower Chest: No significant findings. ABDOMEN: Liver: No solid mass. Scattered subcentimeter hypoattenuating lesions, too small to characterize by CT but probably small cysts. These are stable from prior. Gallbladder: No radiopaque gallstones or wall thickening. Biliary ducts: No biliary dilation. Pancreas: No ductal dilation. Spleen: Size is within normal limits. Adrenal Glands: No adrenal nodules. Kidneys and Ureters: No hydronephrosis. No solid mass. No complex renal cystic lesion which requires follow up. Small burden of punctate, nonobstructing left-sided nephrolithiasis. Stomach and Bowel: Normal colonic caliber, without significant wall thickening. Prior enterotomy. Fecal debris within the small bowel. Peritoneum: No abnormal intraperitoneal fluid. No free air. Ventral Wall: No significant ventral hernia. Abdominal Nodes: No retroperitoneal or mesenteric adenopathy by size criteria. Vessels: Aorta and inferior vena cava are normal in size. PELVIS: Pelvic Organs: Prostatectomy. Bladder: Cystectomy. Right lower quadrant ileal conduit. Pelvic Nodes: No enlarged lymph nodes. Miscellaneous: Small left indirect inguinal hernia containing fat. Bones: No aggressive osseous abnormality. IMPRESSION: Cystectomy with right lower quadrant ileal conduit. No evidence of local recurrence or metastatic disease. Fecal debris within the small-bowel, usually indicating small intestinal bacterial overgrowth versus slow transit. Dictated by: Robb Paige M.D. on 10/23/2024 at 14:04 Approved by: Robb Paige M.D. on 10/23/2024 at 14:20
[2024-10-22 08:19] LABS: Estimated Glomerular Filt Rate 52 mL/min (>60)
== END ==
LOC: CT 07:45
PROVIDERS: PCP Family Medicine; Referring Provider Urology; Visit Provider Urology
DX: C67.8 Malignant neoplasm of overlapping sites of bladder (principal); C77.9 Secondary and unspecified malignant neoplasm of lymph node, unspecified; I08.3 Combined rheumatic disorders of mitral, aortic and tricuspid valves; C61 Malignant neoplasm of prostate; C67.9 Malignant neoplasm of bladder, unspecified; I25.10 Atherosclerotic heart disease of native coronary artery without angina pectoris; E78.5 Hyperlipidemia, unspecified; K40.90 Unilateral inguinal hernia, without obstruction or gangrene, not specified as recurrent; Z93.6 Other artificial openings of urinary tract status
CPT/HCPCS: 36415; 71250; 74177; 82565; 93306; Q9967

== ENCOUNTER 2024-12-24 09:49 | Inpatient (IN) | payer MEDICARE, OTHER, SELFPAY ==
[2024-12-24] VITALS (33 sets, daily range): BP systolic 102–158; BP diastolic 55–78; PULSE 53–78; RESP 12–18; TEMP 36.6–37.1; O2SAT 90–99; BMI 24.4
[2024-12-24 11:34] LABS: Add Manual Diff / Slide Review NO; Hematocrit 42.1 % (41-53); Hemoglobin 14.6 g/dL (13.5-17.5); Lymphocytes Absolute Auto 1300 /uL (1100-4500); Mean Corpuscular HGB Conc 34.6 % (30-36); Mean Corpuscular Hemoglobin 31.4 PG (26-34); Mean Corpuscular Volume 90.8 fL (80-100); Platelet Count 191 X10^3/uL (150-400)
[2024-12-24 11:59] LABS: Alanine Aminotransferase 20 IU/L (<50); Albumin 5.3 g/dL (3.5-5.0); Albumin Globulin Ratio 1.3 (1.0-2.8); Alkaline Phosphatase 91 U/L (38-126); Blood Urea Nitrogen 37 mg/dL (9-20); Calcium 10.1 mg/dL (8.4-10.2); Carbon Dioxide 26 mmol/L (22-32); Chloride 98 mmol/L (98-107); Estimated Glomerular Filt Rate 37 mL/min (>60); Globulin 4.1 g/dL (1.7-4.1); Glucose 93 mg/dL (70-99); HEMOLYSIS 19 (0-50); Lipase 50 U/L (23-300); Potassium 4.5 mmol/L (3.4-5.1); Sodium 137 mmol/L (137-145); Total Protein 9.4 g/dL (6.3-8.2)
--- NOTE | 2024-12-24 11:59 | EKG_ITS ---
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
[2024-12-24 12:15] LABS: Ictotest Urine Negative (Negative)
[2024-12-24 12:28] LABS: Culture Indicated Urine Specimen Cultured
[2024-12-24] MEDS: ONDANSETRON 4 MG/2 ML INJ IV ×2 (13:53→18:13)
[2024-12-24] MEDS: SODIUM CHLORIDE 0.9% 100 ML 1000 ML IV (13:55)
--- NOTE | 2024-12-24 14:14 | ED_ITS ---
HPI - Nausea/Vomiting/Diarrhea General Chief complaint: Nausea/Vomiting/Diarrhea Stated complaint: N/V ,dehydration Time Seen by Provider: 12/24/24 13:55 Source: patient Mode of arrival: Ambulatory History of Present Illness HPI Narrative: Patient here with and daughter. Complains of epigastric discomfort and vomiting. Patient does have history of bladder cancer with urostomy. Has had decreased urine output since vomiting that started yesterday around lunchtime. He states he ate late breakfast food at a restaurant yesterday. The fernando tasted funny. Nobody else ate the same food. 3 hours later had abdominal discomfort. 6 hours later he had food containing emesis and then bilious after that. In the evening he had syncopal episode with vomiting which states is not new. They know for him to get low to the ground when he gets nauseous and vomiting because he usually passes out. He has no injury from yesterday's event. Late last night he had ptosis and he vomited that up. Earlier this morning he tried some water and vomited that up and it was dark black in color. Patient is not on any blood thinners. No black or bloody stools recently. Patient denies any chest pain or shortness of breath. Related Data Home Medications ?Medication ?Instructions ?Recorded ?Confirmed psyllium husk 3.4 gram oral powder 1 packet PO DAILY 0 12/24/24 12/24/24 packet (Metamucil Fiber Singles) sennosides 8.6 mg tablet (senna) 8.6 mg PO DAILY const ipation 12/24/24 12/24/24 Previous Rx's ?Medication ?Instructions ?Recorded oxybutynin chloride 10 mg 10 mg PO DAILY #20 tabs 06/26 07/16 tablet,extended release 24 hr Allergies Allergy/AdvReac Type Severity Reaction Status Date / Time No Known Drug Allergies Allergy Verified 12/24/24 10:30 Review of Systems Review of Systems Narrative: GENERAL: Negative chills, fatigue, malaise, fever, sweats. HEENT: Negative sinus pain, ear pain, sore throat RESPIRATORY: Negative dyspnea, cough CARDIOVASCULAR: Negative chest pain, palpitations GASTROINTESTINAL: Positive vomiting, nausea, abdominal pain : Negative dysuria, frequency, hematuria MUSCULOSKELETAL: Negative muscle or bony pain SKIN: Negative rash, skin lesions NEUROLOGIC: Negative weakness, numbness ROS Unobtainable: All systems reviewed & are unremarkable except as noted in HPI and below Patient History Social History household members: spouse and children Smoking Status: Never smoker Smoking Status: Never smoker Exam Narrative Exam Narrative: GENERAL: in no distress, not toxic not dyspneic HEAD: Normocephalic. EYES: Pupils equal round ENT: Mucous membranes moist. NECK: Trachea midline. CARDIOVASCULAR: Regular rate and rhythm RESPIRATORY: Clear to auscultation. Breath sounds equal bilaterally. No wheezes, rales, or rhonchi. GASTROINTESTINAL: Abdomen soft, non-tender bowel sounds are present no peritoneal signs no guarding or rebound. EXTREMITIES: No gross deformities. BACK: No flank tenderness. NEURO: AOx4. Clear speech SKIN: Warm and dry PSYCH: Not anxious, is cooperative Initial Vital Signs Initial Vital Signs: Vital Signs Temperature 97.9 F 12/24/24 10:29 Pulse Rate 68 12/24/24 10:29 Respiratory Rate 12 12/24/24 10:29 Blood Pressure 156/67 H 12/24/24 10:29 Pulse Oximetry 98 12/24/24 10:29 Oxygen Delivery Method Room Air 12/24/24 10:29 Course Orders Ordered: Heparin Sodium (Porcine) (Heparin 5,000 Unit/Ml Vial) 5,000 unit SUBCUT BID BARBER Last Admin: 12/27/24 08:39 Dose: 5,000 unit Documented By: Admin: 12/26/24 20:21 Dose: 5,000 unit Documented By: Admin: 12/26/24 08:40 Dose: 5,000 unit Documented By: Admin: 12/25/24 23:47 Dose: Not Given Documented By: Admin: 12/25/24 08:32 Dose: 5,000 unit Documented By: Admin: 12/24/24 21:23 Dose: 5,000 unit Documented By: CT Hydromorphone HCl (Hydromorphone Hcl 0.5 Mg/0.5 Ml Syringe) 0.5 mg IV Q2H PRN PRN Reason: Pain, Severe (7-10) Last Admin: 12/25/24 17:45 Dose: 0.5 mg Documented By: Admin: 12/25/24 15:04 Dose: 0.5 mg Documented By: Admin: 12/25/24 13:09 Dose: 0.5 mg Documented By: Admin: 12/25/24 10:31 Dose: 0.5 mg Documented By: Admin: 12/25/24 08:33 Dose: 0.5 mg Documented By: MS Levofloxacin (Levaquin) 750 mg in 150 mls @ 100 mls/hr IV Q48H BARBER Last Infusion: 12/27/24 11:55 Dose: Infused Documented By: Admin: 12/27/24 08:39 Dose: 100 mls/hr Documented By: ESV Lidocaine HCl (Lidocaine Jelly 2% 5 Ml) 1 applic TOP PRN PRN PRN Reason: Pain, Mild (1-3) Naloxone HCl (Naloxone 0.4 Mg/Ml Vial) 0.2 mg IV Q2MIN PRN PRN Reason: Opiate Reversal Ondansetron HCl (Ondansetron 4 Mg/2 Ml Inj) 4 mg IV Q8HR PRN PRN Reason: Nausea And Vomiting Last Admin: 12/25/24 08:33 Dose: 4 mg Documented By: MS Phenol (Phenol Liquid 100 Sprays/Bottle Scalf) 2 sprays MM Q4HR PRN PRN Reason: Sore Throat Last Admin: 12/26/24 06:01 Dose: 2 sprays Documented By: Admin: 12/25/24 10:31 Dose: 2 sprays Documented By: MS Discontinued Medications Al Hydrox/Mg Hydrox/Simethicone 20 ml/ Lidocaine HCl 15 ml 0 ml PO NOW ONE Stop: 12/24/24 14:18 Last Admin: 12/24/24 14:31 Dose: 35 ml Documented By: ANNAMARIA Sodium Chloride (Normal Saline 0.9%) 1,000 mls @ 1,000 mls/hr IV BOLUS ONE Stop: 12/24/24 15:12 Last Infusion: 12/24/24 15:21 Dose: Infused Documented By: Admin: 12/24/24 14:40 Dose: 1,000 mls/hr Documented By: ANNAMARIA Sodium Chloride (Normal Saline 0.9%) 1,000 mls @ 100 mls/hr IV CONT BARBER Last Infusion: 12/27/24 06:11 Dose: 0 mls/hr Documented By: Admin: 12/27/24 01:10 Dose: 100 mls/hr Documented By: Infusion: 12/27/24 01:10 Dose: Infused Documented By: Admin: 12/26/24 17:29 Dose: 100 mls/hr Documented By: Infusion: 12/26/24 16:01 Dose: Infused Documented By: Admin: 12/26/24 06:01 Dose: 100 mls/hr Documented By: Infusion: 12/26/24 01:05 Dose: Infused Documented By: Admin: 12/25/24 15:05 Dose: 100 mls/hr Documented By: Infusion: 12/25/24 15:05 Dose: Infused Documented By: Admin: 12/25/24 05:31 Dose: 100 mls/hr Documented By: Infusion: 12/25/24 05:31 Dose: Infused Documented By: Admin: 12/24/24 20:24 Dose: 100 mls/hr Documented By: TC Magnesium Sulfate (Magnesium Sulfate) 2 gm in 50 mls @ 25 mls/hr IV NOW ONE Stop: 12/25/24 14:14 Last Infusion: 12/25/24 15:06 Dose: Infused Documented By: MS Co-signed By: CLL Admin: 12/25/24 13:10 Dose: 25 mls/hr Documented By: MS Co-signed By: ABDOULAYE Ceftriaxone Sodium 1,000 mg/ (Sodium Chloride) 100 mls @ 200 mls/hr IV Q24H [facility] Last Infusion: 12/26/24 07:00 Dose: Infused Documented By: Admin: 12/26/24 06:07 Dose: 200 mls/hr Documented By: VH Levofloxacin (Levaquin) 500 mg in 100 mls @ 100 mls/hr IV Q24H [facility] Last Infusion: 12/26/24 09:40 Dose: Infused Documented By: Admin: 12/26/24 08:40 Dose: 100 mls/hr Documented By: DM Levofloxacin (Levaquin) 250 mg in 50 mls @ 100 mls/hr IV Q24H [facility] Last Admin: 12/27/24 09:35 Dose: Not Given Documented By: ESV Lidocaine HCl (Lidocaine 4% Soln 50 Ml) 20 ml INH NOW ONE Stop: 12/24/24 17:17 Last Admin: 12/24/24 17:58 Dose: 5 ml Documented By: TC Ondansetron HCl (Ondansetron 4 Mg/2 Ml Inj) 4 mg IV NOW PRN PRN Reason: Nausea And Vomiting Last Admin: 12/24/24 18:13 Dose: 4 mg Documented By: Admin: 12/24/24 13:53 Dose: 4 mg Documented By: TC Ondansetron HCl (Ondansetron 4 Mg Odt) 4 mg PO NOW PRN PRN Reason: Nausea And Vomiting Pantoprazole Sodium (Pantoprazole 40 Mg Vial) 40 mg IV NOW ONE Stop: 12/24/24 14:18 Last Admin: 12/24/24 14:31 Dose: 40 mg Documented By: TC Sodium Chloride (Sodium Chloride 0.9% 100 Ml) 1,000 ml IV NOW ONE Stop: 12/24/24 13:55 Last Admin: 12/24/24 13:55 Dose: 1,000 ml Documented By: TC Vital Signs Vital signs: Vital Signs - 8 hr 12/24/24 10:29 12/24/24 13:49 12/24/24 13:50 Temperature 97.9 F Pulse Rate 68 61 59 L Respiratory Rate 12 Blood Pressure 156/67 H Pulse Oximetry 98 96 95 Oxygen Delivery Method Room Air 12/24/24 13:50 12/24/24 14:00 12/24/24 14:00 Temperature Pulse Rate 56 L Respiratory Rate Blood Pressure 120/67 134/68 Pulse Oximetry 91 Oxygen Delivery Method 12/24/24 14:31 12/24/24 14:32 12/24/24 14:32 Temperature Pulse Rate 57 L 57 L Respiratory Rate Blood Pressure 136/78 Pulse Oximetry 97 97 Oxygen Delivery Method 12/24/24 15:00 12/24/24 15:00 12/24/24 15:30 Temperature Pulse Rate 54 L 56 L Respiratory Rate Blood Pressure 147/65 H Pulse Oximetry 95 95 Oxygen Delivery Method 12/24/24 15:31 12/24/24 15:31 Temperature Pulse Rate 53 L Respiratory Rate Blood Pressure 146/63 H Pulse Oximetry 96 Oxygen Delivery Method MDM - Nausea/Vomiting/Diarrhea Lab Data 12/26/24 06:20 12/26/24 06:20 Labs: Lab Results 12/24/24 12/24/24 Range/Units 11:23 11:50 WBC 10.8 (4.5-11.0) X10^3/uL RBC 4.64 (4.5-5.9) X10^6/uL Hgb 14.6 (13.5-17.5) g/dL Hct 42.1 (41-53) % MCV 90.8 (80-100) fL MCH 31.4 (26-34) PG MCHC 34.6 (30-36) % RDW 12.7 (11.6-14.8) % Plt Count 191 (150-400) X10^3/uL Neut % (Auto) 81.1 H (50-75) % Lymph % (Auto) 11.6 L (25-40) % [place] % (Auto) 6.5 (3-14) % Eos % (Auto) 0.5 L (2-4) % Baso % (Auto) 0.3 (0-2) % Neut # (Auto) 8800 H (3750-1490) /uL Lymph # (Auto) 1300 (4330-1040) /uL [place] # (Auto) 700 (0-900) /uL Eos # (Auto) 100 (0-450) /uL Baso # (Auto) 0 (0-100) /uL Sodium 137 (137-145) mmol/L Potassium 4.5 (3.4-5.1) mmol/L Chloride 98 (98-107) mmol/L Carbon Dioxide 26 (22-32) mmol/L BUN 37 H (9-20) mg/dL Creatinine 1.88 H (0.66-1.25) mg/dL Estimated GFR 37 L (>60) mL/min BUN/Creatinine Ratio 19.7 (6-22) Glucose 93 (70-99) mg/dL Calcium 10.1 (8.4-10.2) mg/dL Total Bilirubin 1.3 (0.2-1.3) mg/dL AST 44 (17-59) IU/L ALT 20 (<50) IU/L Alkaline Phosphatase 91 (38-126) U/L Total Protein 9.4 H (6.3-8.2) g/dL Albumin 5.3 H (3.5-5.0) g/dL Globulin 4.1 (1.7-4.1) g/dL Albumin/Globulin Ratio 1.3 (1.0-2.8) Lipase 50 (23-300) U/L Ur Bilirubin Confirm Negative (Negative) Urine RBC 1-5/hpf D (0-5/HPF) Urine WBC 5-10/hpf H (0-5/HPF) Ur Squamous Epith Cells 0-1 /hpf (0-5/HPF) Ur Transition Epith Cell 1-5/hpf (0-5/HPF) Calcium Oxalate Crystal Few H Triple Phos Crystals Many Amorphous Sediment 1+ Urine Bacteria Many (>30) H (None) Ur Culture Indicated? Specimen cultured Vol Urine Centrifuged 10ml (spun) Urine Dip Bedside Urine Glucose Negative Bedside Urine Bilirubin + 1 Bedside Urine [place] +/- 5 Urine Specific [place] 1.000 Bedside Urine Occult Blood +/- Bedside Urine pH 8.5 Bedside Urine Protein ++ 100 Bedside Urine Urobilinogen - Negative Bedside Urine Nitrite - Negative Bedside Urine Leukocytes ++ [address] scan - abdomen/pelvis: Radiologist's Impression: [address] [address] [address] Scan Report Signed Patient: Rex Christian MR#: [id number] : 1950 Acct:[id number] Age/Sex: 74 / M Date of Service: 12/24/24 Loc: ED Accession Number: [id number] Procedure: CT abdomen pelvis wo con Ordering Provider: Dwight Carmona MD PROCEDURE: CT ABDOMEN PELVIS WO CON INDICATIONS: Abdominal pain vomiting TECHNIQUE: CT of the abdomen and pelvis was obtained without intravenous contrast. Coronal and sagittal reformats were performed. For radiation dose reduction, the following was used: automated exposure control, adjustment of mA and/or kV according to patient size. COMPARISON: [facility], CT, CT ABDOMEN PELVIS W CON, 10/22/2024, 9:43. FINDINGS: Image quality: Diagnostic. Lower Chest: No significant findings. ABDOMEN: Liver: No contour-deforming mass. Scattered low-attenuation unchanged. Gallbladder: No radiopaque gallstones or wall thickening. Biliary ducts: No biliary dilation. Pancreas: No ductal dilation. Spleen: Size is within normal limits. Adrenal Glands: No adrenal nodules. Kidneys and Ureters: No hydronephrosis. Simple left renal cyst. Stomach and Bowel: Dilated fluid-filled loops of small bowel greatest dimension measuring 4.1 cm. Transition point appears to be sutures. Right lower ostomy is present. Structures does not appear to be related directly to the Peritoneum: No abnormal intraperitoneal fluid. No free air. Ventral Wall: No significant hernia. Abdominal Nodes: No retroperitoneal or mesenteric adenopathy by size criteria. Vessels: Aorta and inferior vena cava are normal in size. PELVIS: Pelvic Organs: Unremarkable. Bladder: Unremarkable. Pelvic Nodes: No enlarged lymph nodes. Miscellaneous: No inguinal hernias are seen. Bones: No aggressive osseous abnormality. IMPRESSION: Partial small obstruction appearing with transition point near the anastomotic sutures in the. Dictated by: Nikki Tejeda M.D. on 12/24/2024 at 15:41 Approved by: Nikki Tejeda M.D. on 12/24/2024 at 15:47 [facility] Narrative Medical decision making narrative: Patient here with and daughter. Complains of epigastric discomfort and vomiting. Patient does have history of bladder cancer with urostomy. Has had decreased urine output since vomiting that started yesterday around lunchtime. He states he ate late breakfast food at a restaurant yesterday. The fernando tasted funny. Nobody else ate the same food. 3 hours later had abdominal discomfort. 6 hours later he had food containing emesis and then bilious after that. In the evening he had syncopal episode with vomiting which states is not new. They know for him to get low to the ground when he gets nauseous and vomiting because he usually passes out. He has no injury from yesterday's event. Late last night he had ptosis and he vomited that up. Earlier this morning he tried some water and vomited that up and it was dark black in color. Patient is not on any blood thinners. No black or bloody stools recently. Patient denies any chest pain or shortness of breath. After history and exam, CBC CMP CT abdomen pelvis EKG urinalysis [facility] Medical records reviewed: No recent visit for this complaint Differential considered: Includes but not limited to bowel obstruction food poisoning cholelithiasis cholecystitis pancreatitis appendicitis gastritis Lab Test results independently reviewed as above. Pertinent findings: WBC 10.8 hemoglobin 14.6 sodium 137 potassium 4.5 BUN 37 creatinine 1.88 AST 44 ALT 20 lipase 50 urinalysis WBC 5-10 Independently reviewed EKG normal sinus rhythm normal EKG rate 67 Imaging studies independently reviewed: CT abdomen pelvis partial bowel obstruction Consultations: 4:44 p.m.. Spoke with General surgery, Dr. Johnson, who will follow in consult. Admit to hospitalist. No NG tube at this time. No vomiting. Patient has partial bowel obstruction 4:[address] Arizmendi, hospitalist, who will admit patient Re-evaluations: 4:45 p.m.. Updated patient and family diagnosis of bowel obstruction they do agree for admission. No active vomiting no abdominal pain at this time. Discussion: Appropriate for admission partial bowel obstruction. No NG tube indicated this time. No active vomiting. General surgeon will see patient to decide for NG tube. Diagnosis: Partial bowel obstruction Discharge Plan Departure Patient Disposition: Admitted as Observation Clinical Impression: Partial bowel obstruction Qualifiers: Intestinal obstruction type: unspecified Qualified Code(s): K56.600 - Partial intestinal obstruction, unspecified as to cause Admit Date/Time: 12/24/24 16:57 Admit Provider: Gavin Arizmendi
[2024-12-24] MEDS: MAG HYDROX/ALUMINUM/SIMETH SUS 20 ML, LIDOCAINE VISCOUS 2% 15 ML PO (14:31)
[2024-12-24] MEDS: PANTOPRAZOLE 40 MG VIAL IV (14:31)
[2024-12-24] MEDS: SODIUM CHLORIDE 0.9% 1,000 ML 1000 ML IV (14:40)
--- NOTE | 2024-12-24 17:23 | PM.HP.1 ---
History of Present Illness History of Present Illness Date Patient Seen: 12/24/24 Chief complaint: N/V ,dehydration Narrative: The patient is a 74-year-old male who presents with a complaint of epigastric pain and vomiting. He was a history of bladder cancer with urostomy. He has been vomiting and noted decreased urinary output as well. The patient had a syncopal episode last evening with vomiting. There was no acute injury. In the ED imaging was consistent with a partial small-bowel obstruction, and general surgery was consulted. He was no history of bowel obstruction. His symptoms have been ongoing for about 2 days. He was no history of bowel obstruction but did have a postoperative ileus at the time in his bladder and prostate resection. ED course: A NG tube was placed with a but a 1200 mL of bilious fluid removed and then the patient had hematemesis and aspiration with some bright red blood as well. His saturations dropped for a short time, he improved with O2 nasal cannula and an incentive spirometer. He was having some distention but a lot of abdominal cramping prior to the NG tube placement. [facility] Social History Smoking Status: Never smoker Meds Home Medications and Allergies Home Medications ?Medication ?Instructions ?Recorded ?Confirmed ?Type oxybutynin chloride 10 mg 10 mg PO DAILY #20 tabs 07/24/22 Rx tablet,extended release 24 hr Allergies Allergy/AdvReac Type Severity Reaction Status Date / Time No Known Drug Allergies Allergy Verified 12/24/24 10:30 Review of Systems Review of Systems Narrative: All else reviewed and otherwise unremarkable except as noted in the history and physical. Exam Vital Signs (past 8 hours): - 12/24/24 10:29 12/24/24 13:49 12/24/24 13:50 Temperature 97.9 F Pulse Rate 68 61 59 L Respiratory Rate 12 Blood Pressure 156/67 H Pulse Oximetry 98 96 95 Oxygen Delivery Method Room Air 12/24/24 13:50 12/24/24 14:00 12/24/24 14:00 Temperature Pulse Rate 56 L Respiratory Rate Blood Pressure 120/67 134/68 Pulse Oximetry 91 Oxygen Delivery Method 12/24/24 14:31 12/24/24 14:32 12/24/24 14:32 Temperature Pulse Rate 57 L 57 L Respiratory Rate Blood Pressure 136/78 Pulse Oximetry 97 97 Oxygen Delivery Method 12/24/24 15:00 12/24/24 15:00 12/24/24 15:30 Temperature Pulse Rate 54 L 56 L Respiratory Rate Blood Pressure 147/65 H Pulse Oximetry 95 95 Oxygen Delivery Method 12/24/24 15:31 12/24/24 15:31 12/24/24 16:00 Temperature Pulse Rate 53 L 56 L Respiratory Rate Blood Pressure 146/63 H Pulse Oximetry 96 94 Oxygen Delivery Method 12/24/24 16:01 12/24/24 16:01 12/24/24 16:30 Temperature Pulse Rate 57 L 54 L Respiratory Rate Blood Pressure 138/65 Pulse Oximetry 95 95 Oxygen Delivery Method 12/24/24 16:31 12/24/24 16:31 12/24/24 17:00 Temperature Pulse Rate 53 L 54 L Respiratory Rate Blood Pressure 140/62 Pulse Oximetry 94 96 Oxygen Delivery Method 12/24/24 17:01 12/24/24 17:01 Temperature Pulse Rate 53 L Respiratory Rate Blood Pressure 158/68 H Pulse Oximetry 99 Oxygen Delivery Method Oxygen Delivery Method Room Air Narrative Exam Narrative: NAD, alert and oriented, fluent speech, calm. Normocephalic skull, EOMI, anicteric sclera, symmetric pupils. Oropharynx unremarkable, no droop. Neck supple, midline trachea, no adenopathy. Lungs clear, normal rate and effort. Heart regular, no murmur gallop or rub. Abdomen is soft, non distended and non tender. After NG tube was removed. Extremities are free of edema. Skin is free of rash or lesions. Joints are not swollen or deformed. Judgment appears to be normal. Objective ECG Impression: ntervals [place] Rate: 67 P: 76 AL: 174 QRS: 75 QRSD: 84 T: 73 QT: 402 QTc: 424 Interpretive Statements Normal sinus rhythm Imaging CT scan - abdomen: Radiologist's impression: ABDOMEN: Liver: No contour-deforming mass. Scattered low-attenuation unchanged. Gallbladder: No radiopaque gallstones or wall thickening. Biliary ducts: No biliary dilation. Pancreas: No ductal dilation. Spleen: Size is within normal limits. Adrenal Glands: No adrenal nodules. Kidneys and Ureters: No hydronephrosis. Simple left renal cyst. Stomach and Bowel: Dilated fluid-filled loops of small bowel greatest dimension measuring 4.1 cm. Transition point appears to be sutures. Right lower ostomy is present. Structures does not appear to be related directly to the Peritoneum: No abnormal intraperitoneal fluid. No free air. Ventral Wall: No significant hernia. Abdominal Nodes: No retroperitoneal or mesenteric adenopathy by size criteria. Vessels: Aorta and inferior vena cava are normal in size. PELVIS: Pelvic Organs: Unremarkable. Bladder: Unremarkable. Pelvic Nodes: No enlarged lymph nodes. Miscellaneous: No inguinal hernias are seen. Bones: No aggressive osseous abnormality. IMPRESSION: Partial small obstruction appearing with transition point near the anastomotic sutures in the. Labs 12/24/24 11:23 12/24/24 11:23 Labs: Laboratory Results - last 24 hr 12/24/24 12/24/24 11:23 11:50 WBC 10.8 RBC 4.64 Hgb 14.6 Hct 42.1 MCV 90.8 MCH 31.4 MCHC 34.6 RDW 12.7 Plt Count 191 Neut % (Auto) 81.1 H Lymph % (Auto) 11.6 L [place] % (Auto) 6.5 Eos % (Auto) 0.5 L Baso % (Auto) 0.3 Neut # (Auto) 8800 H Lymph # (Auto) 1300 [place] # (Auto) 700 Eos # (Auto) 100 Baso # (Auto) 0 Sodium 137 Potassium 4.5 Chloride 98 Carbon Dioxide 26 BUN 37 H Creatinine 1.88 H Estimated GFR 37 L BUN/Creatinine Ratio 19.7 Glucose 93 Calcium 10.1 Total Bilirubin 1.3 AST 44 ALT 20 Alkaline Phosphatase 91 Total Protein 9.4 H Albumin 5.3 H Globulin 4.1 Albumin/Globulin Ratio 1.3 Lipase 50 Ur Bilirubin Confirm Negative Urine RBC 1-5/hpf D Urine WBC 5-10/hpf H Ur Squamous Epith Cells 0-1 /hpf Ur Transition Epith Cell 1-5/hpf Calcium Oxalate Crystal Few H Triple Phos Crystals Many Amorphous Sediment 1+ Urine Bacteria Many (>30) H Ur Culture Indicated? Specimen cultured Vol Urine Centrifuged 10ml (spun) Assessment & Plan Assessment & Plan narrative: 1. PSBO, present on admission and active. 2. Syncopal episode with vomiting, improved. 3. Bladder cancer with urostomy, stable. Plan: -general surgery consult. -NPO, may need to replace the NG tube again tonight of the patient has discomfort, abdominal cramping, or uncontrolled vomiting. -IV fluids -analgesia and follow clinical course. -monitor hemoglobin. -oxygen, wean as able. -monitor for pneumonitis -review chest x-ray. Full resuscitation. is proxy decision maker. Anticipate 1 night in the hospital, supports observation status. Time-Based Coding :: 35 min spent with patient and on the chart (including review of chart, obtaining history, exam, reviewing outside data, placing orders, documenting exam and treatment plan, and counseling patient) on 12/24. Quality MIPS - Admit I confirm the patient?s Advance Care Plan is present, Code status is documented, Surrogate decision maker is in patient?s record [If Yes, STOP here]: Yes MIPS - Meds 'Current medications' to include all prescriptions, [id number] products, herbals, cannabis/cannabidiol products, and vitamin/mineral/dietary (nutritional) supplements. I have utilized all available resources to obtain, update, or review the patient?s current medications. [If Yes, STOP here]: Yes
--- NOTE | 2024-12-24 17:42 | P.CONS_ITS ---
History of Present Illness Consult details Date Patient Seen: 12/24/24 Time Patient Seen: 17:43 Chief complaint: N/V ,dehydration Reason for consult: SBO Requesting provider: Dwight Carmona Narrative: Surgical consultation requested by Dr. Bone in the emergency room for small bowel obstruction. Patient being admitted to Dr. Arizmendi on the hospitalist service. Patient was feeling well until yesterday when he developed abdominal cramps nausea and vomiting 2 hours after lunch that consisted of breakfast foods with eggs, hash browns, and toast. No blood in the vomit but he states it was black in color. His bowel movements generally alternate between normal and constipation. He manages this with fiber. He had 2 large bowel movements yesterday with no blood. Past surgical history is significant for open cystectomy and prostatectomy with ileal conduit performed by Dr. Jessenia Michel 2 years ago. He had a prolonged ileus postoperatively requiring nasogastric tube insertion and TPN. He has had no bowel obstruction since. He noticed decreased urine volume in his conduit but this improved after 2 L of fluid in the emergency room. He has not passed gas or stool since he had 2 large bowel movements yesterday. He continues to have severe abdominal cramps in the emergency room. CT imaging demonstrates dilated stomach filled with GI contents and dilated bowel down to a transition point that appears to be distal to his ileal conduit. You can see the justo associated with the conduit but the obstruction appears to be distal to this. There is air in the colon on the CT, but the transition point appears to be tight. Meds Home Medications and Allergies Home Medications ?Medication ?Instructions ?Recorded ?Confirmed ?Type oxybutynin chloride 10 mg 10 mg PO DAILY #20 tabs 06/26 07/16 Rx tablet,extended release 24 hr Allergies Allergy/AdvReac Type Severity Reaction Status Date / Time No Known Drug Allergies Allergy Verified 12/24/24 10:30 Exam Vital Signs (past 8 hours): - 12/24/24 10:29 12/24/24 13:49 12/24/24 13:50 Temperature 97.9 F Pulse Rate 68 61 59 L Respiratory Rate 12 Blood Pressure 156/67 H Pulse Oximetry 98 96 95 Oxygen Delivery Method Room Air 12/24/24 13:50 12/24/24 14:00 12/24/24 14:00 Temperature Pulse Rate 56 L Respiratory Rate Blood Pressure 120/67 134/68 Pulse Oximetry 91 Oxygen Delivery Method 12/24/24 14:31 12/24/24 14:32 12/24/24 14:32 Temperature Pulse Rate 57 L 57 L Respiratory Rate Blood Pressure 136/78 Pulse Oximetry 97 97 Oxygen Delivery Method 12/24/24 15:00 12/24/24 15:00 12/24/24 15:30 Temperature Pulse Rate 54 L 56 L Respiratory Rate Blood Pressure 147/65 H Pulse Oximetry 95 95 Oxygen Delivery Method 12/24/24 15:31 12/24/24 15:31 12/24/24 16:00 Temperature Pulse Rate 53 L 56 L Respiratory Rate Blood Pressure 146/63 H Pulse Oximetry 96 94 Oxygen Delivery Method 12/24/24 16:01 12/24/24 16:01 12/24/24 16:30 Temperature Pulse Rate 57 L 54 L Respiratory Rate Blood Pressure 138/65 Pulse Oximetry 95 95 Oxygen Delivery Method 12/24/24 16:31 12/24/24 16:31 12/24/24 17:00 Temperature Pulse Rate 53 L 54 L Respiratory Rate Blood Pressure 140/62 Pulse Oximetry 94 96 Oxygen Delivery Method 12/24/24 17:01 12/24/24 17:01 Temperature Pulse Rate 53 L Respiratory Rate Blood Pressure 158/68 H Pulse Oximetry 99 Oxygen Delivery Method Oxygen Delivery Method Room Air Const General: comfortable Orientation: alert and oriented x3 HENMT Head: normal to inspection Eyes Visual Nichole: normal visual nichole by confrontation Conjunctivae: conjunctivae normal Sclera: sclerae normal EOM: EOM intact bilaterally Resp Effort & Inspection: normal respiratory effort and able to speak in complete sentences Auscultation: clear to auscultation bilaterally Cardio Rate: regular rate Rhythm: regular rhythm GI Other: soft, distended, +tympany, non-peritoneal Extrem General: normal to inspection Objective Labs 12/24/24 11:23 12/24/24 11:23 Labs: Laboratory Results - last 24 hr 12/24/24 12/24/24 11:23 11:50 WBC 10.8 RBC 4.64 Hgb 14.6 Hct 42.1 MCV 90.8 MCH 31.4 MCHC 34.6 RDW 12.7 Plt Count 191 Neut % (Auto) 81.1 H Lymph % (Auto) 11.6 L [place] % (Auto) 6.5 Eos % (Auto) 0.5 L Baso % (Auto) 0.3 Neut # (Auto) 8800 H Lymph # (Auto) 1300 [place] # (Auto) 700 Eos # (Auto) 100 Baso # (Auto) 0 Sodium 137 Potassium 4.5 Chloride 98 Carbon Dioxide 26 BUN 37 H Creatinine 1.88 H Estimated GFR 37 L BUN/Creatinine Ratio 19.7 Glucose 93 Calcium 10.1 Total Bilirubin 1.3 AST 44 ALT 20 Alkaline Phosphatase 91 Total Protein 9.4 H Albumin 5.3 H Globulin 4.1 Albumin/Globulin Ratio 1.3 Lipase 50 Ur Bilirubin Confirm Negative Urine RBC 1-5/hpf D Urine WBC 5-10/hpf H Ur Squamous Epith Cells 0-1 /hpf Ur Transition Epith Cell 1-5/hpf Calcium Oxalate Crystal Few H Triple Phos Crystals Many Amorphous Sediment 1+ Urine Bacteria Many (>30) H Ur Culture Indicated? Specimen cultured Vol Urine Centrifuged 10ml (spun) PFSH Tobacco & Substance Use Smoking Status: Never smoker Assessment & Plan Assessment and plan (1) Partial bowel obstruction: Qualifiers: Intestinal obstruction type: unspecified Qualified Code(s): K56.600 - Partial intestinal obstruction, unspecified as to cause Status: Acute Assessment & Plan narrative: Small bowel obstruction Likely related to adhesions based upon PSH Transition point appears tight on CT, statistically increases chance of ultimately needing surgery Maximize non-surgical treatment Gastrograffin challenge in AM after NG decompression NGT due to large volume of GI contents in stomach and proximal small bowel NG will help reduce edema and aid non-operative management PPI will help reduce gastric secretion volume GGC will help prognosticate success of non-operative management Time-Based Coding :: [42] spent with patient and on the chart (including review of chart, obtaining history, exam, reviewing outside data, placing orders, documenting exam and treatment plan, and counseling patient) on [12/24/24]. PROFEE Charge Codes Inpatient or Observation consultation: [id number]
[2024-12-24] MEDS: LIDOCAINE 4% SOLN 50 ML 20 ML INH (17:58)
--- NOTE | 2024-12-24 18:28 | DI.RAD.S_ITS ---
PROCEDURE: XR CHEST 1V INDICATIONS: NG placement with hypoxia TECHNIQUE: One view of the chest was acquired. COMPARISON: None. FINDINGS: Surgical changes and devices: None. Lungs and pleura: Lungs are clear. No pleural effusions or pneumothorax. Mediastinum: Mediastinal contours appear normal. Heart size is normal. Bones and chest wall: No suspicious bony lesions. Overlying soft tissues appear unremarkable. IMPRESSION: Indication of NG tube placement. No NG tube is seen. No acute cardiopulmonary abnormality is seen. Dictated by: Ronnie Mathews M.D. on 12/24/2024 at 19:07 Approved by: Ronnie Mathews M.D. on 12/24/2024 at 19:08
--- NOTE | 2024-12-24 18:58 | PC.NURSE ---
Patient had NG placed with 1200ml gastric contents out. Patient started vomiting and coughing during the placement. He appeared to have aspirated and his O2 Sats dropped into the mid 80's. NG was removed. Dr Ugo vu.
--- NOTE | 2024-12-24 19:04 | CM.DANOTE ---
ED PRODUCE RUNNER DCP Assessment Note: Pt is a 74yo male, resident of [place], is admitted for partial bowel obstruction. Pt lives in a house with his and adult son. Pt's Primary Care Provider is Dr. Guero Saldivar and insurance is Medicare and [employer]. Reviewed chart and discussed with multidisciplinary team pt's medical status and initial discharge needs. ED PRODUCE RUNNER met w/patient at bedside; introduced self and role. Patient was found in bed, alert and oriented, cooperative with assessment. Pt confirmed living situation and good support in . Pt expressed preference in discharge home when cleared. Pt has no history of SNF Rehab or home health. Plan: Admission to Acute care, anticipating discharge home with family when medically cleared. CM team will follow closely for coordination of discharge plans. ASHLEY Gardner Discharge Planning/Care Management CM Discharge Assessment Start: 12/24/24 18:43 Freq: Status: Active Protocol: Document 12/24/24 19:00 MW (Rec: 12/24/24 19:01 MW [id number]) Discharge Planning Assessment Assigned Discharge EMILIANA Reed Video Editor DPOA/Assigned Charity Jenkins, Spouse Designee Name Contact Information [phone] Advance Directives? No History Provided By Patient,Significant Other,Medical Record Has Patient been No admitted in last 30 days? Prior Living House Arrangements Household Members spouse,children Type of Drives own vehicle transporation used prior to admit Independent with ADL Yes 's Is patient alert and Yes oriented? Caregiver for No Another Discharge Plan Home Review Status In Process Please Provide Date 12/24/24 Initial DC Assessment Was Performed Next Review Type Continued Stay Review
--- NOTE | 2024-12-24 19:52 | DI.RAD.S_ITS ---
PROCEDURE: XR CHEST 1V INDICATIONS: post NG tube palcement TECHNIQUE: One view of the chest was acquired. COMPARISON: [facility], CR, XR CHEST 1V, 12/24/2024, 18:27. FINDINGS: Surgical changes and devices: Enteric tube courses below the diaphragm with side port and tip projecting over the gastric fundus. Lungs and pleura: Lungs are clear. No pleural effusions or pneumothorax. Mediastinum: Mediastinal contours appear normal. Heart size is normal. Bones and chest wall: No suspicious bony lesions. Overlying soft tissues appear unremarkable. IMPRESSION: Enteric tube side port and tip projects over the gastric fundus. Approved by: Mary Anne Newman M.D.,Ph.D. on 12/24/2024 at 21:46
[2024-12-24] MEDS: SODIUM CHLORIDE 0.9% 1,000 ML 100 ML IV (20:24)
[2024-12-24] MEDS: HEPARIN 5,000 UNIT/ML VIAL 5000 UNIT SUBCUT (21:23)
[2024-12-25] MEDS: SODIUM CHLORIDE 0.9% 1,000 ML 100 ML IV ×2 (05:31→15:05)
[2024-12-25 06:45] LABS: Blood Urea Nitrogen 42 mg/dL (9-20); Calcium 8.3 mg/dL (8.4-10.2); Carbon Dioxide 25 mmol/L (22-32); Chloride 102 mmol/L (98-107); Estimated Glomerular Filt Rate 33 mL/min (>60); Glucose 98 mg/dL (70-99); HEMOLYSIS < 15 (0-50); Potassium 4.6 mmol/L (3.4-5.1); Sodium 136 mmol/L (137-145)
[2024-12-25 06:46] LABS: Add Manual Diff / Slide Review NO; Hematocrit 37.0 % (41-53); Hemoglobin 12.7 g/dL (13.5-17.5); Lymphocytes Absolute Auto 600 /uL (1100-4500); Mean Corpuscular HGB Conc 34.5 % (30-36); Mean Corpuscular Hemoglobin 31.4 PG (26-34); Mean Corpuscular Volume 91.1 fL (80-100); Platelet Count 142 X10^3/uL (150-400)
--- NOTE | 2024-12-25 07:40 | P.PN_ITS ---
Subjective Subjective Interval history: Summary: He was admitted with his 1st partial small-bowel obstruction. He had an aspiration event during his initial NG tube placement and also had about 1200 cc of bilious and then red material aspirated from the stomach. S: Some flatus last night, none today. Some abdominal distention, but no pain. No nausea. He has a Gastrografin challenge started. He was saturations of 90- 92% off from oxygen. He does have a hoarse voice but no cough. Chest x-ray was clear after his aspiration event. Exam Vital Signs (past 8 hours): Oxygen Delivery Method Oximask Oxygen Flow Rate 4 Narrative Exam Narrative: NAD, alert and oriented. Fluent speech. NGT in place. Lungs are clear, normal rate and effort. Heart is regular, no murmur gallop or rub. Abdomen is soft, non distended. It was mildly hypertympanic, and hypoactive bowel tones. Extremities are free of edema. Objective ECG Impression: Rate: 67 P: 76 AR: 174 QRS: 75 QRSD: 84 T: 73 QT: 402 QTc: 424 Interpretive Statements Normal sinus rhythm Imaging CT scan - abdomen: Radiologist's impression: ABDOMEN: Liver: No contour-deforming mass. Scattered low-attenuation unchanged. Gallbladder: No radiopaque gallstones or wall thickening. Biliary ducts: No biliary dilation. Pancreas: No ductal dilation. Spleen: Size is within normal limits. Adrenal Glands: No adrenal nodules. Kidneys and Ureters: No hydronephrosis. Simple left renal cyst. Stomach and Bowel: Dilated fluid-filled loops of small bowel greatest dimension measuring 4.1 cm. Transition point appears to be sutures. Right lower ostomy is present. Structures does not appear to be related directly to the Peritoneum: No abnormal intraperitoneal fluid. No free air. Ventral Wall: No significant hernia. Abdominal Nodes: No retroperitoneal or mesenteric adenopathy by size criteria. Vessels: Aorta and inferior vena cava are normal in size. PELVIS: Pelvic Organs: Unremarkable. Bladder: Unremarkable. Pelvic Nodes: No enlarged lymph nodes. Miscellaneous: No inguinal hernias are seen. Bones: No aggressive osseous abnormality. IMPRESSION: Partial small obstruction appearing with transition point near the anastomotic sutures. Chest x-ray: Radiologist's impression: Enteric tube side port and tip projects over the gastric fundus. Labs 12/25/24 06:00 12/25/24 06:00 Labs: Laboratory Results - last 24 hr 12/24/24 12/24/24 12/25/24 11:23 11:50 00:00 WBC 10.8 RBC 4.64 Hgb 14.6 Hct 42.1 MCV 90.8 MCH 31.4 MCHC 34.6 RDW 12.7 Plt Count 191 Neut % (Auto) 81.1 H Lymph % (Auto) 11.6 L [place] % (Auto) 6.5 Eos % (Auto) 0.5 L Baso % (Auto) 0.3 Neut # (Auto) 8800 H Lymph # (Auto) 1300 [place] # (Auto) 700 Eos # (Auto) 100 Baso # (Auto) 0 Sodium 137 Potassium 4.5 Chloride 98 Carbon Dioxide 26 BUN 37 H Creatinine 1.88 H Estimated GFR 37 L BUN/Creatinine Ratio 19.7 Glucose 93 POC Whole Bld Glucose 94 Calcium 10.1 Total Bilirubin 1.3 AST 44 ALT 20 Alkaline Phosphatase 91 Total Protein 9.4 H Albumin 5.3 H Globulin 4.1 Albumin/Globulin Ratio 1.3 Lipase 50 Ur Bilirubin Confirm Negative Urine RBC 1-5/hpf D Urine WBC 5-10/hpf H Ur Squamous Epith Cells 0-1 /hpf Ur Transition Epith Cell 1-5/hpf Calcium Oxalate Crystal Few H Triple Phos Crystals Many Amorphous Sediment 1+ Urine Bacteria Many (>30) H Ur Culture Indicated? Specimen cultured Vol Urine Centrifuged 10ml (spun) 12/25/24 06:00 WBC 11.9 H RBC 4.06 L Hgb 12.7 L Hct 37.0 L MCV 91.1 MCH 31.4 MCHC 34.5 RDW 12.7 Plt Count 142 L Neut % (Auto) 89.6 H Lymph % (Auto) 5.1 L [place] % (Auto) 5.2 Eos % (Auto) 0.0 L Baso % (Auto) 0.1 Neut # (Auto) 59597 H Lymph # (Auto) 600 L [place] # (Auto) 600 Eos # (Auto) 0 Baso # (Auto) 0 Sodium 136 L Potassium 4.6 Chloride 102 Carbon Dioxide 25 BUN 42 H Creatinine 2.06 H Estimated GFR 33 L BUN/Creatinine Ratio 20.4 Glucose 98 POC Whole Bld Glucose Calcium 8.3 L Total Bilirubin AST ALT Alkaline Phosphatase Total Protein Albumin Globulin Albumin/Globulin Ratio Lipase Ur Bilirubin Confirm Urine RBC Urine WBC Ur Squamous Epith Cells Ur Transition Epith Cell Calcium Oxalate Crystal Triple Phos Crystals Amorphous Sediment Urine Bacteria Ur Culture Indicated? Vol Urine Centrifuged PFSH Social History household members: spouse and children Smoking Status: Never smoker Assessment & Plan Assessment & Plan narrative: 1. PSBO, present on admission and active. 2. Aspirationl episode with vomiting, improved. 3. Bladder cancer with urostomy, stable. Plan: -general surgery involved. -NG tube clamped. -Gastrografin challenge. -analgesia and follow clinical course. -monitor hemoglobin. -oxygen, wean as able. -monitor for pneumonitis -O2 off. Time-Based Coding :: [TOTAL MINUTES] spent with patient and on the chart (including review of chart, obtaining history, exam, reviewing outside data, placing orders, documenting exam and treatment plan, and counseling patient) on [DATE].
[2024-12-25 08:00] VITALS: BP 128/56; PULSE 77; RESP 16; TEMP 37.8; O2SAT 96
--- NOTE | 2024-12-25 08:00 | DI.RAD.S_ITS ---
PROCEDURE: XR GASTROGRAFIN CHALLENGE COMPARISON: [facility], CR, XR ABDOMEN MIN 2V, 12/26/2024, 7:01. INDICATIONS: SBO, GGC via NGT please to evaluate transit time, transition FINDINGS/IMPRESSION: Enteric tube in place. Contrast filling the stomach and dilated loops of small bowel. Possible contrast within the cecum. Dilated loops of small bowel may represent obstruction versus ileus. Surgical clips within the pelvis. Dictated by: Ronnie Mathews M.D. on 12/26/2024 at 16:19 Approved by: Ronnie Mathews M.D. on 12/26/2024 at 16:21
[2024-12-25] MEDS: HEPARIN 5,000 UNIT/ML VIAL 5000 UNIT SUBCUT (08:32)
[2024-12-25] MEDS: ONDANSETRON 4 MG/2 ML INJ IV (08:33)
--- NOTE | 2024-12-25 09:38 | PM.PN.IH.1 ---
Subjective Subjective Date Patient Seen: 12/25/24 Time Patient Seen: 09:38 Interval history: Admitted 12/24/24 SBO Small amount of flatus yesterday, none since, no BM Gastrografin instilled via NG this morning No n/v Initial NG volume 1200. Had 75cc overnight C/O abdominal cramps, pain controlled with dilaudid Exam Vital Signs (past 8 hours): - 12/25/24 08:00 Temperature 100.1 F H Pulse Rate 77 Respiratory Rate 16 Blood Pressure 128/56 L Pulse Oximetry 96 Oxygen Flow Rate 4 Oxygen Delivery Method Oximask Oxygen Flow Rate 4 Const General: comfortable Orientation: alert and oriented x3 Resp Effort & Inspection: normal respiratory effort and able to speak in complete sentences Auscultation: clear to auscultation bilaterally Other: No wheeze Cardio Rate: regular rate Other: No murmur GI Other: Distended, +tympany, non-peritoneal, clear urine in ileal conduit, no change in abdominal exam Extrem Other: without pitting edema Objective Labs 12/25/24 06:00 12/25/24 06:00 Labs: Laboratory Results - last 24 hr 12/24/24 12/24/24 12/25/24 11:23 11:50 00:00 WBC 10.8 RBC 4.64 Hgb 14.6 Hct 42.1 MCV 90.8 MCH 31.4 MCHC 34.6 RDW 12.7 Plt Count 191 Neut % (Auto) 81.1 H Lymph % (Auto) 11.6 L [place] % (Auto) 6.5 Eos % (Auto) 0.5 L Baso % (Auto) 0.3 Neut # (Auto) 8800 H Lymph # (Auto) 1300 [place] # (Auto) 700 Eos # (Auto) 100 Baso # (Auto) 0 Sodium 137 Potassium 4.5 Chloride 98 Carbon Dioxide 26 BUN 37 H Creatinine 1.88 H Estimated GFR 37 L BUN/Creatinine Ratio 19.7 Glucose 93 POC Whole Bld Glucose 94 Calcium 10.1 Total Bilirubin 1.3 AST 44 ALT 20 Alkaline Phosphatase 91 Total Protein 9.4 H Albumin 5.3 H Globulin 4.1 Albumin/Globulin Ratio 1.3 Lipase 50 Ur Bilirubin Confirm Negative Urine RBC 1-5/hpf D Urine WBC 5-10/hpf H Ur Squamous Epith Cells 0-1 /hpf Ur Transition Epith Cell 1-5/hpf Calcium Oxalate Crystal Few H Triple Phos Crystals Many Amorphous Sediment 1+ Urine Bacteria Many (>30) H Ur Culture Indicated? Specimen cultured Vol Urine Centrifuged 10ml (spun) 12/25/24 06:00 WBC 11.9 H RBC 4.06 L Hgb 12.7 L Hct 37.0 L MCV 91.1 MCH 31.4 MCHC 34.5 RDW 12.7 Plt Count 142 L Neut % (Auto) 89.6 H Lymph % (Auto) 5.1 L [place] % (Auto) 5.2 Eos % (Auto) 0.0 L Baso % (Auto) 0.1 Neut # (Auto) 22009 H Lymph # (Auto) 600 L [place] # (Auto) 600 Eos # (Auto) 0 Baso # (Auto) 0 Sodium 136 L Potassium 4.6 Chloride 102 Carbon Dioxide 25 BUN 42 H Creatinine 2.06 H Estimated GFR 33 L BUN/Creatinine Ratio 20.4 Glucose 98 POC Whole Bld Glucose Calcium 8.3 L Total Bilirubin AST ALT Alkaline Phosphatase Total Protein Albumin Globulin Albumin/Globulin Ratio Lipase Ur Bilirubin Confirm Urine RBC Urine WBC Ur Squamous Epith Cells Ur Transition Epith Cell Calcium Oxalate Crystal Triple Phos Crystals Amorphous Sediment Urine Bacteria Ur Culture Indicated? Vol Urine Centrifuged [facility] Social History household members: spouse and children Smoking Status: Never smoker Assessment & Plan Assessment and plan (1) Partial bowel obstruction: Qualifiers: Intestinal obstruction type: unspecified Qualified Code(s): K56.600 - Partial intestinal obstruction, unspecified as to cause Status: Acute Assessment & Plan narrative: SBO GGC-gastrografin challenge this morning, review results K normal; add Mg to blood in lab If gastrografin reaches colon within 2 hrs, suggests non-operative management, can also prognosticate based upon degree of obstruction Continue NGT for now (off suction for GGC) Monitor fluid balance/lytes Time-Based Coding :: [31] spent with patient and on the chart (including review of chart, obtaining history, exam, reviewing outside data, placing orders, documenting exam and treatment plan, and counseling patient) on [12/25/24]. PROFEE Educational Institution President Document charge(s): Yes
[2024-12-25 10:13] LABS: Magnesium 1.5 mg/dL (1.6-2.3)
[2024-12-25] MEDS: PHENOL LIQUID 100 SPRAYS/BOTTLE SPRAY MM (10:31)
[2024-12-25] MEDS: MAGNESIUM SULFATE 2 GM/50 ML PIGGYBACK IV (13:10)
[2024-12-25 19:00] VITALS: BP 132/51; PULSE 68; RESP 18; TEMP 36.8; O2SAT 97
[2024-12-26] MEDS: SODIUM CHLORIDE 0.9% 1,000 ML 100 ML IV ×2 (06:01→17:29)
[2024-12-26] MEDS: PHENOL LIQUID 100 SPRAYS/BOTTLE SPRAY MM (06:01)
[2024-12-26 06:38] LABS: Add Manual Diff / Slide Review NO; Hematocrit 32.4 % (41-53); Hemoglobin 11.2 g/dL (13.5-17.5); Lymphocytes Absolute Auto 600 /uL (1100-4500); Mean Corpuscular HGB Conc 34.6 % (30-36); Mean Corpuscular Hemoglobin 31.4 PG (26-34); Mean Corpuscular Volume 90.9 fL (80-100); Platelet Count 115 X10^3/uL (150-400)
[2024-12-26 06:52] LABS: Blood Urea Nitrogen 45 mg/dL (9-20); Calcium 8.5 mg/dL (8.4-10.2); Carbon Dioxide 26 mmol/L (22-32); Chloride 107 mmol/L (98-107); Estimated Glomerular Filt Rate 41 mL/min (>60); Glucose 103 mg/dL (70-99); HEMOLYSIS < 15 (0-50); Magnesium 2.2 mg/dL (1.6-2.3); Potassium 4.1 mmol/L (3.4-5.1); Sodium 139 mmol/L (137-145)
--- NOTE | 2024-12-26 06:54 | DI.RAD.S_ITS ---
PROCEDURE: XR ABDOMEN MIN 2V INDICATIONS: F/U gastrograffin progression TECHNIQUE: 2 views of the abdomen were acquired. COMPARISON: [facility], CR, XR GASTROGRAFIN CHALLENGE, 12/25/2024, 12:14. FINDINGS: Surgical changes and devices: None. Bowel: Dilated loops of small bowel redemonstrated. Gastrografin is seen throughout the colon. Soft tissues: No masses; visualized solid organ contours appear normal in size. No suspicious abdominal calcifications. Bones: No suspicious bony abnormalities. IMPRESSION: Dilated loops of small bowel redemonstrated consistent with obstruction versus ileus. Gastrografin is seen throughout the colon. Dictated by: Ronnie Mathews M.D. on 12/26/2024 at 9:08 Approved by: Ronnie Mathews M.D. on 12/26/2024 at 9:08
--- NOTE | 2024-12-26 07:13 | PM.PN.IH.1 ---
Subjective Subjective Date Patient Seen: 12/26/24 Time Patient Seen: 07:13 Interval history: Tm 100.1 overnight Passing gastrografin in loose stool, large volume yesterday, more overnight Denies back pain, n/v NGT clear with reduced volume Abdominal cramps have improved significantly Ambulating in halls Exam Vital Signs (past 8 hours): Oxygen Delivery Method Room Air,Oximask Oxygen Flow Rate 4 Const General: comfortable Orientation: alert and oriented x3 Resp Effort & Inspection: normal respiratory effort and able to speak in complete sentences Auscultation: clear to auscultation bilaterally Cardio Rate: regular rate Rhythm: regular rhythm GI Other: soft, less distended, +tympany, non-peritoneal exam Extrem Other: Without pitting edema Objective Labs 12/26/24 06:20 12/26/24 06:20 Labs: Laboratory Results - last 24 hr 12/25/24 12/25/24 12/25/24 06:00 11:18 16:40 WBC RBC Hgb Hct MCV MCH MCHC RDW Plt Count Neut % (Auto) Lymph % (Auto) [place] % (Auto) Eos % (Auto) Baso % (Auto) Neut # (Auto) Lymph # (Auto) [place] # (Auto) Eos # (Auto) Baso # (Auto) Sodium Potassium Chloride Carbon Dioxide BUN Creatinine Estimated GFR BUN/Creatinine Ratio Glucose POC Whole Bld Glucose 95 112 H Calcium Magnesium 1.5 L 12/25/24 12/26/24 12/26/24 23:59 06:18 06:20 WBC 11.0 RBC 3.56 L Hgb 11.2 L Hct 32.4 L MCV 90.9 MCH 31.4 MCHC 34.6 RDW 12.8 Plt Count 115 L Neut % (Auto) 89.0 H Lymph % (Auto) 5.6 L [place] % (Auto) 4.8 Eos % (Auto) 0.4 L Baso % (Auto) 0.2 Neut # (Auto) 9800 H Lymph # (Auto) 600 L [place] # (Auto) 500 Eos # (Auto) 0 Baso # (Auto) 0 Sodium 139 Potassium 4.1 Chloride 107 Carbon Dioxide 26 BUN 45 H Creatinine 1.75 H Estimated GFR 41 L BUN/Creatinine Ratio 25.7 H Glucose 103 H POC Whole Bld Glucose 104 H 102 H Calcium 8.5 Magnesium 2.2 PFSH Social History household members: spouse and children Smoking Status: Never smoker Assessment & Plan Assessment and plan (1) UTI (urinary tract infection): Qualifiers: Urinary tract infection type: site unspecified Hematuria presence: without hematuria Qualified Code(s): N39.0 - Urinary tract infection, site not specified Status: Acute (2) Partial bowel obstruction: Qualifiers: Intestinal obstruction type: unspecified Qualified Code(s): K56.600 - Partial intestinal obstruction, unspecified as to cause Status: Acute Assessment & Plan narrative: SBO Appears to be resolving with non-operative management +Gastrografin diarrhea improved abdominal exam NGT clearer with lower volume Check AXR this morning Consider NGT removal, sips Mg replaced yesterday, check Mg level this AM UTI UA with bacteria WBC 17.6 LGT 100.1 Urine culture with GNR, await ID, sensitivity Ceftriaxone therapy started this morning Time-Based Coding :: [TOTAL MINUTES] spent with patient and on the chart (including review of chart, obtaining history, exam, reviewing outside data, placing orders, documenting exam and treatment plan, and counseling patient) on [DATE]. PROFEE Animal Technician Document charge(s): Yes Charge Codes Subsequent inpatient/observation care: [id number]
--- NOTE | 2024-12-26 07:52 | P.PN_ITS ---
Subjective Subjective Date Patient Seen: 12/26/24 Interval history: He tells me that his urostomy was placed when he was treated for bladder cancer 2 years ago. His urine culture is growing [id number] providencia Rottgeri so his antibiotics will be changed from ceftriaxone to levofloxacin. This is per the sensitivity comments in the report. His home is in [place] and his PCP is Dr. Saldivar. He has an NG tube in the right nostril. The magnesium level hiram from 1.5 up to 1.22. The creatinine dropped from 2.06 down to 1.75. The white blood count is 11.0. Surgery is following him Exam Vital Signs (past 8 hours): Oxygen Delivery Method Room Air,Oximask Oxygen Flow Rate 4 Narrative Exam Narrative: Alert and oriented x3. No apparent distress other than the right nasal gastric tube. Heart is regular rate and rhythm without murmur Lungs are clear to auscultation bilaterally Extremities have no ankle edema A right sided abdominal urostomy is present with a catheter draining yellow urine. Objective Labs 12/26/24 06:20 12/26/24 06:20 Labs: Laboratory Results - last 24 hr 12/25/24 12/25/24 12/25/24 06:00 11:18 16:40 WBC RBC Hgb Hct MCV MCH MCHC RDW Plt Count Neut % (Auto) Lymph % (Auto) [place] % (Auto) Eos % (Auto) Baso % (Auto) Neut # (Auto) Lymph # (Auto) [place] # (Auto) Eos # (Auto) Baso # (Auto) Sodium Potassium Chloride Carbon Dioxide BUN Creatinine Estimated GFR BUN/Creatinine Ratio Glucose POC Whole Bld Glucose 95 112 H Calcium Magnesium 1.5 L 12/25/24 12/26/24 12/26/24 23:59 06:18 06:20 WBC 11.0 RBC 3.56 L Hgb 11.2 L Hct 32.4 L MCV 90.9 MCH 31.4 MCHC 34.6 RDW 12.8 Plt Count 115 L Neut % (Auto) 89.0 H Lymph % (Auto) 5.6 L [place] % (Auto) 4.8 Eos % (Auto) 0.4 L Baso % (Auto) 0.2 Neut # (Auto) 9800 H Lymph # (Auto) 600 L [place] # (Auto) 500 Eos # (Auto) 0 Baso # (Auto) 0 Sodium 139 Potassium 4.1 Chloride 107 Carbon Dioxide 26 BUN 45 H Creatinine 1.75 H Estimated GFR 41 L BUN/Creatinine Ratio 25.7 H Glucose 103 H POC Whole Bld Glucose 104 H 102 H Calcium 8.5 Magnesium 2.2 PFSH Social History household members: spouse and children Smoking Status: Never smoker Assessment & Plan Assessment & Plan narrative: 1. PSBO, present on admission and active. 2. Aspirationl episode with vomiting, improved. 3. Bladder cancer with urostomy, stable. 4. Providencia Rottgeri Catheter related UTI Plan: -general surgery following -NG tube clamped. -large bowel movement post Gastrografin. -analgesia and follow clinical course. -monitor hemoglobin. -oxygen, wean as able. -monitor for pneumonitis -O2 off. -change to IV levofloxacin based on sensitivity comments for the UTI culture. Time-Based Coding :: [TOTAL MINUTES] spent with patient and on the chart (including review of chart, obtaining history, exam, reviewing outside data, placing orders, documenting exam and treatment plan, and counseling patient) on [DATE].
[2024-12-26 08:00] VITALS: BP 121/50; PULSE 59; RESP 14; TEMP 37.1; O2SAT 93
[2024-12-26] MEDS: HEPARIN 5,000 UNIT/ML VIAL 5000 UNIT SUBCUT ×2 (08:40→20:21)
[2024-12-26] MEDS: levoFLOXacin 500 MG/100 ML PIGGYBACK 100 MG IV (08:40)
--- NOTE | 2024-12-26 10:37 | CM.DPNOTE ---
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 per hospitalist in morning rounds, will likely be here another day or so but partial bowel obstruction resolving. P: anticipate home with spouse when stable. no CM needs at this time. will continue to follow in case any DCP needs arise EMILIANA Klein
[2024-12-26 21:02] VITALS: BP 122/48; PULSE 67; RESP 16; TEMP 38; O2SAT 93
[2024-12-26 22:23] VITALS: TEMP 37.4
[2024-12-27] MEDS: SODIUM CHLORIDE 0.9% 1,000 ML 100 ML IV (01:10)
--- NOTE | 2024-12-27 06:38 | PC.NURSE ---
Patient is AxOx4, VSS. SpO2 93% on RA. Patient reports some SOB, lung sounds are clear and diminished in bases. Patient using incentive spirometer and ambulates during the day. Denies abdominal pain, N/V. Bowel tones heard in all four quadrants. Urostomy bag in place, clear/yellow urine noted in bag. D/c'd IVF this morning. Tolerating CLD well. Oriented to call-light, plan of care ongoing.
--- NOTE | 2024-12-27 07:51 | P.PN_ITS ---
Subjective Subjective Date Patient Seen: 12/27/24 Interval history: He is doing very well today. The nasogastric tube was removed yesterday and he is tolerating a soft diet this morning. He is hoping to go home this afternoon. The levofloxacin should be effective for his UTI. Exam Vital Signs (past 8 hours): Oxygen Delivery Method Room Air Oxygen Flow Rate 0 Narrative Exam Narrative: He is alert and oriented. No apparent distress. Heart is regular rate and rhythm without murmur Lungs are clear to auscultation bilaterally Abdomen is soft, bowel sounds positive, nontender, no organomegaly. Urostomy is intact and functional. Extremities have no ankle edema. Objective Labs 12/26/24 06:20 12/26/24 06:20 [facility] Social History household members: spouse and children Smoking Status: Never smoker Assessment & Plan Assessment & Plan narrative: 1. PSBO, present on admission and active. 2. Aspiration episode with vomiting, improved. 3. Bladder cancer with urostomy, stable. 4. Providencia Rottgeri Catheter related UTI Plan: -general surgery following, likely to discharge later today or tomorrow. -NG tube is out and is now on a soft diet. -large bowel movement post Gastrografin. -changed to IV levofloxacin based on sensitivity comments for the UTI culture. Time-Based Coding :: [TOTAL MINUTES] spent with patient and on the chart (including review of chart, obtaining history, exam, reviewing outside data, placing orders, documenting exam and treatment plan, and counseling patient) on [DATE].
[2024-12-27] MEDS: HEPARIN 5,000 UNIT/ML VIAL 5000 UNIT SUBCUT ×2 (08:39→20:24)
--- NOTE | 2024-12-27 09:17 | PM.PN.IH.1 ---
Subjective Subjective Date Patient Seen: 12/27/24 Time Patient Seen: 09:17 Interval history: NGT out yesterday without n/v Tolerated significant volume of clears without n/v Continues to have liquid stool per rectum, non-bloody Exam Vital Signs (past 8 hours): Oxygen Delivery Method Room Air Oxygen Flow Rate 0 Const General: comfortable Orientation: alert and oriented x3 Resp Effort & Inspection: normal respiratory effort and able to speak in complete sentences Auscultation: clear to auscultation bilaterally Cardio Rate: regular rate GI Other: Less distended, still tympanitic, non-peritoneal, clear urine from conduit Extrem Other: without pitting edema Objective Labs 12/26/24 06:20 12/26/24 06:20 [facility] Social History household members: spouse and children Smoking Status: Never smoker Assessment & Plan Assessment and plan (1) UTI (urinary tract infection): Qualifiers: Urinary tract infection type: site unspecified Hematuria presence: without hematuria Qualified Code(s): N39.0 - Urinary tract infection, site not specified Status: Acute (2) Partial bowel obstruction: Qualifiers: Intestinal obstruction type: unspecified Qualified Code(s): K56.600 - Partial intestinal obstruction, unspecified as to cause Status: Acute Plan SBO UTI SBO resolving. Likely ileus from UTI contributing IV abx for UTI Mg normal after replacement Advance diet to fulls Time-Based Coding :: [TOTAL MINUTES] spent with patient and on the chart (including review of chart, obtaining history, exam, reviewing outside data, placing orders, documenting exam and treatment plan, and counseling patient) on [DATE]. 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
[2024-12-27 10:00] VITALS: BP 129/57; PULSE 65; RESP 16; TEMP 37.6; O2SAT 96
[2024-12-27 19:00] VITALS: BP 136/58; PULSE 65; RESP 18; TEMP 36.9; O2SAT 93
[2024-12-27] MEDS: BENZONATATE 100 MG CAPSULE PO (22:40)
[2024-12-28 07:00] VITALS: BP 143/67; PULSE 62; RESP 16; TEMP 37.4; O2SAT 95
--- NOTE | 2024-12-28 07:42 | P.PN_ITS ---
Subjective Subjective Date Patient Seen: 12/28/24 Time Patient Seen: 07:43 Interval history: Tolerated full liquids Denies N/V Loose BM Exam Vital Signs (past 8 hours): Oxygen Delivery Method Room Air Oxygen Flow Rate 0 Const General: comfortable Orientation: alert and oriented x3 Resp Effort & Inspection: normal respiratory effort Auscultation: clear to auscultation bilaterally Cardio Rate: regular rate GI Other: Soft, mild distention, +tympany, improved exam overall with less distention, non-peritoneal exam Extrem Other: EXT: without pitting edema Objective Labs 12/26/24 06:20 12/26/24 06:20 [facility] Social History household members: spouse and children Smoking Status: Never smoker Assessment & Plan Assessment and plan (1) Partial bowel obstruction: Qualifiers: Intestinal obstruction type: unspecified Qualified Code(s): K56.600 - Partial intestinal obstruction, unspecified as to cause Status: Acute (2) UTI (urinary tract infection): Qualifiers: Urinary tract infection type: site unspecified Hematuria presence: w ithout hematuria Qualified Code(s): N39.0 - Urinary tract infection, site not specified Status: Acute Plan Regular diet today Possible home later today if tolerates regular diet F/U surgery clinic prn Time-Based Coding :: [TOTAL MINUTES] spent with patient and on the chart (including review of chart, obtaining history, exam, reviewing outside data, placing orders, documenting exam and treatment plan, and counseling patient) on [DATE]. 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
--- NOTE | 2024-12-28 08:10 | PM.DS.1 ---
History of Present Illness History of Present Illness Date Patient Seen: 12/28/24 Chief complaint: N/V ,dehydration Narrative: The patient is a 74-year-old male who presents with a complaint of epigastric pain and vomiting. He was a history of bladder cancer with urostomy. He has been vomiting and noted decreased urinary output as well. The patient had a syncopal episode last evening with vomiting. There was no acute injury. In the ED imaging was consistent with a partial small-bowel obstruction, and general surgery was consulted. He was no history of bowel obstruction. His symptoms have been ongoing for about 2 days. He was no history of bowel obstruction but did have a postoperative ileus at the time in his bladder and prostate resection. ED course: A NG tube was placed with a but a 1200 mL of bilious fluid removed and then the patient had hematemesis and aspiration with some bright red blood as well. His saturations dropped for a short time, he improved with O2 nasal cannula and an incentive spirometer. He was having some distention but a lot of abdominal cramping prior to the NG tube placement. Discharge Providers Provider Date of admission: 12/24/24 16:57 Discharge Date: 12/28/24 Primary care physician: Guero Saldivar MD Discharge provider: Eric Leung MD Summary Hospital Course Hospital Course: 1. PSBO symptoms resolved by discharge 2. Aspiration episode with vomiting 3. Bladder cancer with urostomy 4. Providencia Rottgeri/E. Coli Catheter related UTI 5. AMANDA: Creatinine dropped from 2.06 to 1.75 and will need to be rechecked at PCP follow up visit next week. Plan: -general surgery followed and cleared for discharge if tolerating PO today. -NG tube is out and is now on a soft diet. -large bowel movement post Gastrografin. -changed to IV levofloxacin based on sensitivity comments for the UTI culture. We discussed the final identification and sensitivities which included E coli that the levofloxacin should also be effective for. Because of the AMANDA the dose was adjusted to 750 mg every 48 hours. Physical activity precautions while on this fluoroquinolone were discussed with the patient and his daughter. Close follow-up with his PCP was recommended. Follow up with surgery as needed. Status at Discharge Cognitive/behavioral status at discharge: at baseline, oriented Functional status at discharge: independent ambulation Overall status at discharge: patient is back to baseline Exam Vital Signs (past 8 hours): Oxygen Delivery Method Room Air Oxygen Flow Rate 0 Narrative Exam Narrative: Alert and oriented x3. Up and walking in the hallway with family. Mild coughing persists. Recent chest x-rays are reviewed. It remains possible that he had a small occult pneumonia which the levofloxacin should also be effective for. He will need follow-up of his AMANDA with BMP at next PCP visit in 1-2 weeks. Heart is regular rate and rhythm without murmur. Lungs are clear to auscultation bilaterally Extremities have no ankle edema. Abdomen is soft, nontender. Objective Labs 12/26/24 06:20 12/26/24 06:20 [facility] Social History household members: spouse and children Smoking Status: Never smoker Discharge Plan Discharge Plan Patient Disposition: Home Provider Discharge Comment: Follow up with Dr. Saldivar in one week Discharge orders & Medications Prescriptions: New levofloxacin 750 mg tablet 750 mg PO .q48 Qty: 3 0RF benzonatate 100 mg Capsule 100 mg PO TID PRN (Reason: Cough) Qty: 10 0RF Continued sennosides [senna] 8.6 mg tablet 8.6 mg PO DAILY Metamucil Fiber Singles 3.4 gram powder in packet 1 packet PO DAILY Discontinued oxybutynin chloride 10 mg tablet extended release 24hr 10 mg PO DAILY Qty: 20 0RF Follow up/Referrals: Guero Saldivar MD [Primary Care Provider, [facility]] Diet/Activity/Treatments Diet: Regular Visit Report/Discharge Packet Stand Alone Forms: Patient Portal/API, Stroke Signs & Symptoms Discharge Data Primary Care Provider: Guero Saldivar
[2024-12-28] MEDS: HEPARIN 5,000 UNIT/ML VIAL 5000 UNIT SUBCUT (08:51)
--- NOTE | 2024-12-28 11:05 | PC.NURSE ---
Patient ambulating in the halls with his daughter. BT are hypoactive but present. Patient is on RA and his O2 sats are between 92-93%. Patient had a bm yesterday. He slightly distended, encouraged ambulatin.
--- NOTE | 2024-12-28 11:19 | CM.DPNOTE ---
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 per previous CM notes, anticipate home with no CM needs when medically stable. Will continue to follow closely in case and DCP needs arise EMILIANA Klein
== END 2024-12-28 15:55 | disposition home or self-care (01) | DRG 389 ==
LOC: ED 16:49 → AC 17:47
PROVIDERS: Pharmacist Pharmacist Clinician (PhC)/ Clinical Pharmacy Specialist; Surgery; Admitting Provider Hospitalist; Emergency Provider Emergency Medicine; PCP Family Medicine; Referring Provider Emergency Medicine; Visit Provider Hospitalist
DX: K56.600 Partial intestinal obstruction, unspecified as to cause (principal); N17.9 Acute kidney failure, unspecified; N39.0 Urinary tract infection, site not specified; T83.518A Infection and inflammatory reaction due to other urinary catheter, initial encounter; C67.9 Malignant neoplasm of bladder, unspecified; R55 Syncope and collapse; T17.918A Gastric contents in respiratory tract, part unspecified causing other injury, initial encounter; B96.89 Other specified bacterial agents as the cause of diseases classified elsewhere; B96.20 Unspecified Escherichia coli [E. coli] as the cause of diseases classified elsewhere; Z87.19 Personal history of other diseases of the digestive system; Z98.890 Other specified postprocedural states; Z93.6 Other artificial openings of urinary tract status
CPT/HCPCS: 36415; 71045; 74018; 74176; 80048; 80053; 81003; 81015; 82962; 83690; 83735; 85025; 87077; 87086; 87186; 93005; 93010; 94667; 96361; 96374; 96375; 99284; 99285; J0696; J1171; J1644; J1956; J2405; J2470; J3475

== ENCOUNTER → 2025-03-09 10:00 | Outpatient (CLI) | payer MEDICARE, OTHER, SELFPAY ==
[2024-12-24 20:23] VITALS: BMI 24.4
--- NOTE | 2025-03-09 10:01 | DI.CT.S_ITS ---
PROCEDURE: CT CHEST ABD PEL W CON INDICATIONS: S P ILEAL CONDULT TECHNIQUE: After the administration of intravenous contrast, 5 mm thick sections acquired from the lung apices to the symphysis. 5 mm coronal and sagittal reformats were performed, with additional 7 mm MIP reformats through the lungs. For radiation dose reduction, the following was used: automated exposure control, adjustment of mA and/or kV according to patient size. COMPARISON: [facility], CT, CT ABDOMEN PELVIS WO CON, 12/24/2024, 14:24. [facility], CT, CT ABDOMEN PELVIS W CON, 10/22/2024, 9:43. [facility], CT, CT CHEST WO CON, 10/22/2024, 9:43. FINDINGS: Image quality: Excellent. CHEST: Lower Neck: No enlarged lymph nodes. Thyroid: Normal CT appearance. Axillae: No enlarged lymph nodes. Chest Wall: No suspicious soft tissue mass. Lungs and Pleura: Central and peripheral airways are normal without bronchial wall thickening or bronchiectasis. No nodule, mass, ground-glass opacity, or consolidation. No pleural effusions or pleural calcification. Heart: Heart size is normal. No pericardial effusion. Moderate coronary artery calcification. Thoracic Vessels: The aorta and pulmonary arteries demonstrate normal size. Mild aortic valvular calcification. Mediastinum and Eliana: No enlarged lymph nodes. Esophagus: No wall thickening. No hiatal hernia. ABDOMEN: Liver: Mild steatosis. Several small hypodensities, cysts and/or hemangiomas. No suspicious enhancing mass. Gallbladder: No wall thickening or calcified stones. Biliary ducts: No biliary dilation. Pancreas: Normal size and morphology without visible ductal dilatation or inflammation. Spleen: Size is within normal limits. Punctate calcification, probably a granuloma. Adrenal Glands: No adrenal nodules. Kidneys and Ureters: Symmetric enhancement. Punctate nonobstructing stone in the midpole left kidney. No hydronephrosis. No visible mass or cyst requiring follow up. No hydroureter. Ureteral anastomosis in the right lower abdomen with an ileal conduit. Probable surgical clips at the anastomosis. Ileal loop extending towards right lower quadrant urostomy is normal. Stomach and Bowel: Stomach and proximal small bowel loops are within normal limits. Left upper quadrant small bowel anastomosis appears widely patent. Normal appendix. Increased quantity of solid stool throughout the colon. Peritoneum: No abnormal intraperitoneal fluid. No free air. Ventral Wall: No significant ventral hernia. Abdominal Nodes: No retroperitoneal or mesenteric adenopathy by size criteria. Vessels: The abdominal aorta, IVC, and portal vein are of normal caliber. PELVIS: Pelvic Organs: Prior cystoprostatectomy. Several surgical clips bilaterally in the pelvis extending into the external iliac regions. Bladder: Prior cystoprostatectomy. Pelvic Nodes: No enlarged lymph nodes. Miscellaneous: No inguinal hernias are seen. Bones: No aggressive osseous abnormality. IMPRESSION: Cystoprostatectomy and right lower quadrant ileal conduit. No obstruction or evidence of local disease recurrence. No evidence of metastatic disease in the chest, abdomen, or pelvis. Incidental findings are stable. Dictated by: Matilda Rios M.D. on 03/09/2025 at 15:25 Approved by: Matilda Rios M.D. on 03/09/2025 at 15:39
[2025-03-09 10:38] LABS: Estimated Glomerular Filt Rate 51 mL/min (>60)
== END ==
PROVIDERS: PCP Family Medicine; Referring Provider Urology; Visit Provider Urology
DX: C67.8 Malignant neoplasm of overlapping sites of bladder (principal); C61 Malignant neoplasm of prostate; C77.9 Secondary and unspecified malignant neoplasm of lymph node, unspecified; Z93.6 Other artificial openings of urinary tract status; I25.10 Atherosclerotic heart disease of native coronary artery without angina pectoris; N20.0 Calculus of kidney; K76.0 Fatty (change of) liver, not elsewhere classified; Z98.0 Intestinal bypass and anastomosis status
CPT/HCPCS: 36415; 71260; 74177; 82565; Q9967

== ENCOUNTER → 2025-05-24 13:51 | Outpatient (CLI) | payer MEDICARE, OTHER, SELFPAY ==
[2024-12-24 20:23] VITALS: BMI 24.4
--- NOTE | 2025-05-24 13:54 | DI.MRI.S_ITS ---
PROCEDURE: MR ENTEROGRAPHY PROTOCOL INDICATIONS: hx of small bowel obstructions TECHNIQUE: After the ingestion of oral contrast, coronal and axial HASTE, coronal 2-D FLASH in-and [id number] sequences. After the administration of contrast, coronal and axial VIBE or 2-D FLASH with fat saturation sequences acquired through the abdomen and pelvis. Optional diffusion weighted imaging and ADC may be performed. COMPARISON: [facility], CT, CT ABDOMEN PELVIS WO CON, 12/24/2024, 14:24. [facility], CT, CT CHEST ABD PEL W CON, 03/09/2025, 11:13. FINDINGS: Image quality: Excellent. Bowel and peritoneum: Status post ileal conduit with right upper quadrant small bowel anastomosis. There is layering fluid at the anastomosis. Small bowel loops are otherwise normal in size without signs of obstruction. No abnormal early or late bowel hyperenhancement. Moderate to large volume of stool is seen throughout the colon. Right abdominal ileal conduit an is present in nondilated. Image quality: Diagnostic. Lung bases: Unremarkable. Liver: No solid mass. Multiple small nonenhancing [id number] hepatic cysts. Gallbladder: No gallstones or wall thickening. Biliary ducts: No biliary dilation. No evidence of PSC. Pancreas: No ductal dilation. Spleen: Size is within normal limits. Adrenal Glands: No adrenal nodules. Kidneys and Ureters: No hydronephrosis. No solid mass. No complex renal cystic lesion which requires follow up. Nonenhancing [id number] simple cyst in the posterior interpolar region of the left kidney. Peritoneum: No abnormal intraperitoneal fluid. No free air. Ventral Wall: No hernia. Abdominal Nodes: No retroperitoneal or mesenteric adenopathy by size criteria. Vessels: Aorta and inferior vena cava are normal in size. Pelvis: Status post cystoprostatectomy. No suspicious mass. Small fat containing left inguinal hernia versus spermatic cord lipoma. Bones: No aggressive osseous abnormality. No enhancing osseous lesion. Degenerative changes are seen in the sacroiliac joints and spine. IMPRESSION: 1. Status post cystoprostatectomy with right abdominal ileal conduit. No hydronephrosis. No recurrent pelvic mass. 2. Right abdominal ileal anastomosis appears patent. Small amount of layering fluid material may indicate focal increased transit time at the anastomosis although there are no signs of small bowel obstruction on the current exam. No focal small bowel inflammatory changes. 3. Moderate to large volume of stool in the colon, correlate for constipation. Approved by: Kevin Rubio M.D. on 05/24/2025 at 16:42
== END ==
PROVIDERS: PCP Family Medicine; Referring Provider Internal Medicine; Visit Provider Internal Medicine
DX: K76.89 Other specified diseases of liver (principal); N28.1 Cyst of kidney, acquired; Z87.19 Personal history of other diseases of the digestive system; Z98.0 Intestinal bypass and anastomosis status
CPT/HCPCS: 72197; 74183; A9579